=== PATIENT | female | born 1970 | race Caucasian/White ===

== ENCOUNTER → 2016-11-08 | Outpatient (CLI) | payer MEDICAID ==
--- NOTE | 2016-11-09 08:29 | Diagnostic Imaging Report ---
EXAMINATION: Bilateral screening mammogram with a Computer Aided Detection (CAD) system. INDICATION: Screening. PERSONAL HISTORY: No current complaints stated on the questionnaire. COMPARISON: 03/10/2014. FINDINGS: The breasts are composed of heterogeneously dense parenchyma which may decrease mammographic sensitivity. There are bilateral circumscribed masses seen in the upper outer aspect of each breast measuring about 1 cm in size on the right side and 2 cm on the left. These could represent cysts. The rest of the breast parenchyma appears comparable to the prior exams. Benign-appearing calcifications are seen. IMPRESSION: Circumscribed masses in the upper outer aspect of each breast are probably related to cysts. An ultrasound evaluation is recommended. ACR BI-RADS Category 0: Incomplete. (Needs additional imaging evaluation). Result letter will be mailed to the patient. Note: At least 10% of breast cancer is not imaged by mammography. Dictated by: Dictated on workstation # [id number]
== END ==
LOC: RAD 11:17
PROVIDERS: ATTEND Family Medicine
DX: Z12.31 Encounter for screening mammogram for malignant neoplasm of breast (principal); N63 Unspecified lump in breast
CPT/HCPCS: 77067

== ENCOUNTER → 2016-11-17 | Outpatient (CLI) | payer MEDICAID ==
--- NOTE | 2016-11-17 20:16 | Diagnostic Imaging Report ---
EXAMINATION: Bilateral breast ultrasound. INDICATION: Focal asymmetry seen in the upper outer aspect of each breast, bilaterally. FINDINGS: In the upper outer aspect of the left breast there are cysts, the largest is 2.5 x 1.5 x 2.4 cm at the 2:00 zone, 2 cm from the nipple. In the upper outer aspect of the right breast there are multiple cysts, the largest measuring 1.4 x 0.8 x 1.2 cm at the 9:00, zone. This is 5 cm from the nipple. These match the mammographic abnormalities. No sonographic suspicious sign or evidence of a solid mass. IMPRESSION: Bilateral simple appearing cysts in the upper outer quadrants of each breast which correlates with the mammographic findings. Annual screening mammograms recommended. ACR BI-RADS Category 2: Benign findings. Result letter will be mailed to the patient. Note: At least 10% of breast cancer is not imaged by mammography. Dictated by: Dictated on workstation # [id number]
== END ==
LOC: RAD 13:20
PROVIDERS: ATTEND Family Medicine
DX: N60.11 Diffuse cystic mastopathy of right breast (principal); N60.12 Diffuse cystic mastopathy of left breast
CPT/HCPCS: 76642

== ENCOUNTER 2016-12-02 10:24 | Emergency (ER) | payer MEDICAID ==
[~2016-12-02] VITALS: Ht 154.9 cm; Wt 89.4 kg
--- OUTSIDE RECORDS SUMMARY | 2016-12-02 10:29 | XMS REPORT | Continuity of Care Document ---
Author Author [facility] Address Unknown Phone Unavailable Allergies Medications Problems Date Dx Coded Attending Type Code Diagnosis Diagnosed By 12/17/2007 WHITE DDS, MILES J 729.5 PAIN IN LIMB 04/08/2008 WHITE DDS, MILES J 465.9 UPPER RESPIRATORY INFECTION 04/08/2008 WHITE DDS, MILES J V70.3 SPORTS/SCHOOL EXAM 11/13/2008 WHITE DDS, MILES J 345.90 EPILEPSY UNSPECIFIED WITHOUT INTRACTABLE EPILEPSY 01/28/2009 WHITE DDS, MILES J 300.4 DYSTHYMIC DIS 01/28/2009 WHITE DDS, MILES J 317 MILD MENTAL RETARDATION 11/04/2016 Ot 780.79 OTH MALAISE FATIGUE 11/04/2016 Ot 794.5 ABN THYROID FUNCT STUDY 11/04/2016 Ot 780.79 OTH MALAISE FATIGUE 11/04/2016 Ot 794.5 ABN THYROID FUNCT STUDY 11/04/2016 Ot V76.12 OTH SCREEN MAMMO-MALIGN NEOPLASM OF ALEKS 11/04/2016 Ot 780.39 OTHER CONVULSIONS 11/04/2016 YASIR MARTIN MD Ot 793.82 INCONCLUSIVE MAMMOGRAM 11/04/2016 YASIR MARTIN MD Ot V76.12 OTH SCREEN MAMMO-MALIGN NEOPLASM OF ALEKS 11/04/2016 YASIR MARTIN MD Ot V76.12 OTH SCREEN MAMMO-MALIGN NEOPLASM OF ALEKS 11/04/2016 YASIR MARTIN MD Ot 610.0 SOLITARY CYST OF BREAST 11/08/2016 Ot 780.79 OTH MALAISE FATIGUE 11/08/2016 Ot 794.5 ABN THYROID FUNCT STUDY 11/08/2016 Ot 780.79 OTH MALAISE FATIGUE 11/08/2016 Ot 794.5 ABN THYROID FUNCT STUDY 11/08/2016 Ot V76.12 OTH SCREEN MAMMO-MALIGN NEOPLASM OF ALEKS 11/08/2016 Ot 780.39 OTHER CONVULSIONS 11/08/2016 YASIR MARTIN MD Ot 793.82 INCONCLUSIVE MAMMOGRAM 11/08/2016 YASIR MARTIN MD Ot V76.12 OTH SCREEN MAMMO-MALIGN NEOPLASM OF ALEKS 11/08/2016 YASIR MARTIN MD Ot V76.12 OTH SCREEN MAMMO-MALIGN NEOPLASM OF AELKS 11/08/2016 YASIR MARTIN MD Ot 610.0 SOLITARY CYST OF BREAST 11/09/2016 YASIR MARTIN MD Ot N63 UNSPECIFIED LUMP IN BREAST 11/09/2016 YASIR MARTIN MD L Ot Z12.31 ENCNTR SCREEN MAMMOGRAM FOR MALIGNANT NE 11/09/2016 YASIR MARTIN MD Ot N63 UNSPECIFIED LUMP IN BREAST 11/09/2016 YASIR MARTIN MD Ot Z12.31 ENCNTR SCREEN MAMMOGRAM FOR MALIGNANT NE 11/18/2016 YASIR MARTIN MD Ot N63 UNSPECIFIED LUMP IN BREAST 11/18/2016 YASIR MARTIN MD Ot Z12.31 ENCNTR SCREEN MAMMOGRAM FOR MALIGNANT NE 11/29/2016 YASIR MARTIN MD L Ot 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 11/29/2016 YASIR MARTIN MD L Ot N60.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 Procedures Results Encounters ACCT No. Visit Date/Time Discharge Status Pt. Type Provider Facility Loc./Unit Complaint [id number] 01/14/2013 08:00:00 01/14/2013 23: 59:59 CLS Outpatient MILES GROSS DDS
[2016-12-02] MEDS ORDERED: NAPR500T3 (10:46)
[2016-12-02] MEDS ORDERED: CYCL5TAB (10:46)
[2016-12-02] MEDS ORDERED: PANT40TA3 (10:46)
[2016-12-02] MEDS ORDERED: TRAZ100T92 (10:46)
[2016-12-02] MEDS ORDERED: MIRA50TA (10:46)
[2016-12-02] MEDS ORDERED: PHEN-452 (10:46)
--- NOTE | 2016-12-02 10:56 | ED Respiratory ---
General Chief Complaint: Respiratory Problems Stated Complaint: SOB Nursing Triage Note: ARRIVED VIA AMB. PT IS A PT AT [facility] . WENT TO GET WEIGHED THIS AT [facility] AND THEY NOTICED PT IS GASPING FOR AIR AND SENT HER TO THE ER. STAFF WITH HER REPORTS SHE IS CONFUSED. Source: patient Exam Limitations: no limitations History of Present Illness Time seen by provider: 10:42 Initial Comments This 46-year-old white female presents with her caregiver from [facility] with a history of increasing shortness of breath over the past 2 weeks. No fever or chill. No productive cough. There is been no associated chest pain. There is been no similar history in the past. Patient's past medical history includes obesity for which she is taking a diet pill. This is in anticipation of repair of an abdominal wall hernia. Further history from the caregiver reveals the patient had a previous blood clot 5 years ago for which she was hospitalized for a number of days. Allergies and Home Medications Allergies Coded Allergies: aspirin (Verified Allergy, Unknown, 12/02/16) Home Medications Cyclobenzaprine HCl 5 Mg Tablet, #60 (Reported) Mirabegron 50 Mg Tab.er.24h, #30 (Reported) Naproxen 500 Mg Tablet, #60 (Reported) Pantoprazole Sodium 40 Mg Tablet.dr, #30 (Reported) Phentermine HCl 30 Mg Capsule, #30 (Reported) Trazodone HCl 100 Mg Tablet, #30 (Reported) Constitutional: No chills, No fever EENTM: No ear pain, No vision loss Respiratory: cough (a slight nonproductive cough has been noted by the patient' s caregivers), short of breath, No wheezing Gastrointestinal: No abdominal pain, No diarrhea, No nausea, No vomiting Genitourinary: No decreased output Musculoskeletal: No back pain Skin: No change in color, No rash Psychiatric/Neurological: No Symptoms Reported Hematologic/Lymphatic: No Symptoms Reported Immunological/Allergic: no symptoms reported Past Wydokll-Pmfdrj-Ixhkqr Hx Patient Social History Recent Foreign Travel: No Contact w/Someone Who Travel: No Recent Infectious Disease Expo: No Surgeries Surgeries: Gallbladder Gastrointestinal Gastrointestinal Disorders: Hiatal Hernia Reviewed Nursing Assessment Reviewed/Agree w Nursing PMH: Yes Physical Exam Vital Signs Vital Sign - Last 12Hours 12/02/16 10:27 Temp 99.3 Pulse 122 Resp 20 B/P (MAP) 142/102 Pulse Ox 99 O2 Delivery Room Air Capillary Refill : Less Than 3 Seconds General Appearance: WD/WN, no apparent distress HEENT: normal ENT inspection Neck: normal inspection Respiratory: chest non-tender, lungs clear, normal breath sounds, no respiratory distress, no accessory muscle use Cardiovascular: normal peripheral pulses, regular rate, rhythm, no edema Gastrointestinal: normal bowel sounds, non tender, soft Extremities: normal range of motion, normal inspection Neurologic/Psychiatric: no motor/sensory deficits, alert Skin: normal color, warm/dry Progress/Results/Core Measures Results/Orders Lab Results Laboratory Tests Test 12/02/16 10:37 Range/Units White Blood Count 6.7 4.3-11.0 10^3/uL Red Blood Count 4.21 L 4.35-5.85 10^6/uL Hemoglobin 11.3 L 11.5-16.0 G/DL Hematocrit 36 35-52 % Mean Corpuscular Volume 85 80-99 FL Mean Corpuscular Hemoglobin 27 25-34 PG Mean Corpuscular Hemoglobin Concent 32 32-36 G/DL Red Cell Distribution Width 15.4 H 10.0-14.5 % Platelet Count 407 H 130-400 10^3/uL Mean Platelet Volume 10.0 7.4-10.4 FL Neutrophils (%) (Auto) 66 42-75 % Lymphocytes (%) (Auto) 23 12-44 % Monocytes (%) (Auto) 9 0-12 % Eosinophils (%) (Auto) 2 0-10 % Basophils (%) (Auto) 1 0-10 % Neutrophils # (Auto) 4.4 1.8-7.8 X 10^3 Lymphocytes # (Auto) 1.6 1.0-4.0 X 10^3 Monocytes # (Auto) 0.6 0.0-1.0 X 10^3 Eosinophils # (Auto) 0.1 0.0-0.3 10^3/uL Basophils # (Auto) 0.0 0.0-0.1 10^3/uL Prothrombin Time 12.7 12.2-14.7 SEC INR Comment 1.0 0.8-1.4 Activated Partial Thromboplast Time 28 24-35 SEC D-Dimer 0.32 0.00-0.49 UG/ML Sodium Level 140 135-145 MMOL/L Potassium Level 3.9 3.6-5.0 MMOL/L Chloride Level 106 98-107 MMOL/L Carbon Dioxide Level 22 21-32 MMOL/L Anion Gap 12 5-14 MMOL/L Blood Urea Nitrogen 10 7-18 MG/DL Creatinine 1.18 0.60-1.30 MG/DL Estimat Glomerular Filtration Rate 49 BUN/Creatinine Ratio 8 Glucose Level 118 H 70-105 MG/DL Calcium Level 10.4 H 8.5-10.1 MG/DL Magnesium Level 1.8 1.8-2.4 MG/DL Total Bilirubin 0.4 0.1-1.0 MG/DL Aspartate Amino Transf (AST/SGOT) 14 5-34 U/L Alanine Aminotransferase (ALT/SGPT) 15 0-55 U/L Alkaline Phosphatase 138 H 40-136 U/L Myoglobin 69.8 10.0-92.0 NG/ML Troponin I < 0.30 <0.30 NG/ML B-Type Natriuretic Peptide 51.5 <100.0 PG/ML Total Protein 7.8 6.4-8.2 GM/DL Albumin 4.0 3.2-4.5 GM/DL My Orders Orders - SATISH, MARY Momin MD Cbc With Automated Diff (12/02/16 10:58) Magnesium (12/02/16 10:58) Chest 1 View, Ap/Pa Only (12/02/16 10:58) Ekg Tracing (12/02/16 10:58) Cardiac Profile 1 (12/02/16 10:58) Comprehensive Metabolic Panel (12/02/16 10:58) Myoglobin Serum (12/02/16 10:58) Protime With Inr (12/02/16 10:58) Partial Thromboplastin Time (12/02/16 10:58) O2 (12/02/16 10:58) Monitor-Rhythm Ecg Trace Only (12/02/16 10:58) Lipid Panel (12/03/16 06:00) Saline Lock/Iv-Start (12/02/16 10:58) BNP (12/02/16 10:58) Fibrin Degradation Products (12/02/16 10:58) Ct Angio Chest W (12/02/16 12:18) Ns Iv 1000 Ml (Sodium Chloride 0.9%) (12/02/16 13:15) Iohexol Injection (Omnipaque 350 Mg/Ml 1 (12/02/16 14:00) Ns (Ivpb) (Sodium Chloride 0.9% Ivpb Bag (12/02/16 14:00) Medications Given in ED Current Medications Medications Dose Ordered Sig/Jeff Route Start Time Stop Time Status Last Admin Dose Admin Iohexol 100 ml ONCE ONCE IV 12/02/16 14:00 12/02/16 14:01 DC 12/02/16 13:52 100 ML Sodium Chloride 100 ml ONCE ONCE IV 12/02/16 14:00 12/02/16 14:01 DC 12/02/16 13:52 80 ML Vital Signs/I&O Vital Sign - Last 12Hours 12/02/16 12/02/16 10:27 12:25 Temp 99.3 98.6 Pulse 122 Resp 20 B/P (MAP) 142/102 Pulse Ox 99 100 O2 Delivery Room Air Room Air Blood Pressure Mean: 115 Progress Note : Time: 14:28 Progress Note The patient's EKG demonstrated a normal sinus rhythm without evidence of acute cranial injury. Patient's troponin was normal. The patient's d-dimer was negative. The patient's BMP was normal. Patient's pulse oximeter on room air was 98-99 percent. In view of the patient's previous documented blood clots a CT of the chest for PE was ordered. The patient's CT for PE was negative. At the time of discharge nursing Parment the patient's shortness of breath and spontaneously abated. Departure Impression Impression: Primary Impression: Shortness of breath Disposition: HOME, SELF-CARE Condition: Improved Departure-Patient Inst. Decision time for Depature: 14:30 Referrals: YASIR MARTIN MD (PCP/Family) Primary Care Physician Patient Instructions: Shortness of Breath (Dyspnea) (DC) Add. Discharge Instructions: Close follow-up with your doctor on Monday. Return in the interim if any problems. All discharge instructions reviewed with patient and/or family. Voiced understanding. MARY COVARRUBIAS MD Dec 02, 2016 10:56
[2016-12-02 11:05] LABS: BASOPHILS % (AUTO) 1 % (0-10); EOSINOPHILS # (AUTO) 0.1 10^3/uL (0.0-0.3); EOSINOPHILS % (AUTO) 2 % (0-10); LYMPHOCYTES # (AUTO) 1.6 X 10^3 (1.0-4.0); LYMPHOCYTES % (AUTO) 23 % (12-44); MEAN CORPUSCULAR HEMOGLOBIN 27 PG (25-34); MEAN CORPUSCULAR HGB CONC 32 G/DL (32-36); MEAN CORPUSCULAR VOLUME 85 FL (80-99); MONOCYTES # (AUTO) 0.6 X 10^3 (0.0-1.0); MONOCYTES % (AUTO) 9 % (0-12); NEUTROPHILS # (AUTO) 4.4 X 10^3 (1.8-7.8); NEUTROPHILS % (AUTO) 66 % (42-75); PLATELET COUNT 407 10^3/uL (130-400); RED BLOOD COUNT 4.21 10^6/uL (4.35-5.85); RED CELL DISTRIBUTION WIDTH 15.4 % (10.0-14.5); WHITE BLOOD COUNT 6.7 10^3/uL (4.3-11.0)
[2016-12-02 11:09] LABS: PROTHROMBIN TIME PATIENT 12.7 SEC (12.2-14.7)
[2016-12-02 11:23] LABS: ALANINE AMINOTRANSFERASE 15 U/L (0-55); ANION GAP 12 MMOL/L (5-14); ASPARTATE AMINO TRANSFERASE 14 U/L (5-34); BILIRUBIN,TOTAL 0.4 MG/DL (0.1-1.0); BLOOD UREA NITROGEN 10 MG/DL (7-18); BUN/CREATININE RATIO 8; CALCIUM 10.4 MG/DL (8.5-10.1); CARBON DIOXIDE 22 MMOL/L (21-32); CHLORIDE 106 MMOL/L (98-107); CREATININE SERUM 1.18 MG/DL (0.60-1.30); GFR ESTIMATED 49; GLUCOSE 118 MG/DL (70-105); MAGNESIUM 1.8 MG/DL (1.8-2.4); POTASSIUM 3.9 MMOL/L (3.6-5.0); SODIUM 140 MMOL/L (135-145); TOTAL PROTEIN 7.8 GM/DL (6.4-8.2)
[2016-12-02 11:29] LABS: MYOGLOBIN SERUM 69.8 NG/ML (10.0-92.0)
--- NOTE | 2016-12-02 12:21 | Diagnostic Imaging Report ---
EXAMINATION: Portable upright radiograph of the chest. INDICATION: Shortness of breath. FINDINGS: The lungs are clear. The heart size is normal. No effusion or pneumothorax. The mediastinum and inderjit appear unremarkable. IMPRESSION: Unremarkable exam. Dictated by: Dictated on workstation # [id number]
[2016-12-02] MEDS ORDERED: NS IV 1000 ML 1,000 ML IV SCH (13:15)
[2016-12-02] MEDS ORDERED: IOHEXOL 350 MG/ML 100 ML (OMNIPAQUE 350) VIAL IV ONE (14:00)
[2016-12-02] MEDS ORDERED: NS 100 ML (IVPB) BAG IV ONE (14:00)
--- NOTE | 2016-12-02 14:20 | Diagnostic Imaging Report ---
PROCEDURE: CT angiography of the chest with contrast. TECHNIQUE: Multiple contiguous axial images were obtained through the chest after uneventful bolus administration of intravenous contrast. Reconstructed CTA MIP acquisitions were also performed. INDICATION: Shortness of breath. COMPARISON: Chest radiographs 12/02/2016. FINDINGS: Examination is limited by motion artifact and contrast timing. No pulmonary artery filling defects. No thoracic aortic aneurysm or dissection. The lungs are clear. No pleural or pericardial effusion. No mediastinal, hilar or axillary lymphadenopathy. No pneumothorax. Large esophageal hiatal hernia. Cholecystectomy. Benign-appearing cysts and renal stones in the partially visualized kidneys. No acute osseous findings. IMPRESSION: No large or central pulmonary emboli. No thoracic aortic aneurysm or dissection. No acute CT findings in the chest. Dictated by: Dictated on workstation # [id number]
[2016-12-02 14:36] VITALS: BP 127/90
== END 2016-12-02 14:36 | disposition home or self-care (01) ==
LOC: EDUNIT# 10:24 → ER 10:25
DX: R06.02 Shortness of breath (principal); E66.9 Obesity, unspecified; Z68.37 Body mass index [BMI] 37.0-37.9, adult
CPT/HCPCS: 36415; 71010; 71275; 80053; 83735; 83874; 83880; 84484; 84703; 85025; 85379; 85610; 85730

== ENCOUNTER → 2018-02-20 | Outpatient (CLI) | payer MEDICAID ==
[~2018-02-20] MED LIST: CYCL5TAB; MIRA50TA; NAPR-915; PANT40TA3; PHEN30CA2; TRAZ-190
--- NOTE | 2018-02-20 13:11 | Diagnostic Imaging Report ---
INDICATION: Routine screening. COMPARISON: 11/08/2016 and 02/26/2014. TECHNIQUE: 2D and 3D bilateral screening mammography was performed with CAD. 3D tomosynthesis was also performed and reviewed. FINDINGS: Both breasts remain heterogeneously dense, limiting the sensitivity of mammography. There are benign calcifications throughout both breasts. A cyst in the outer left breast has significantly reduced in size since the prior mammogram. There is a density in the medial left breast at anterior depth, best seen on the CC view, which appears to be slightly more prominent on today's study. Additional views are recommended. The exact location on the MLO view is indeterminate. No other suspicious densities are seen. The axillae are unremarkable. IMPRESSION: There is a left breast density medially on the CC view. Additional views including spot compression and rolled CC views as well as a mediolateral view are recommended. ACR BI-RADS Category 0: Incomplete. (Needs additional imaging evaluation). Result letter will be mailed to the patient. Note: At least 10% of breast cancer is not imaged by mammography. Dictated by: Dictated on workstation # [id number]
== END ==
LOC: RAD 09:31
PROVIDERS: ATTEND Family Medicine
DX: Z12.31 Encounter for screening mammogram for malignant neoplasm of breast (principal); R92.8 Other abnormal and inconclusive findings on diagnostic imaging of breast
CPT/HCPCS: 77067

== ENCOUNTER → 2018-03-05 | Outpatient (CLI) | payer MEDICAID ==
--- NOTE | 2018-03-05 14:49 | Diagnostic Imaging Report ---
INDICATION: Left breast density. Patient presents for additional views. COMPARISON: Correlation is made with the recent screening study from 02/20/2018 and prior mammograms from 11/08/2016. TECHNIQUE: 2D and 3D unilateral left diagnostic mammography was performed including spot compression CC, rolled CC, and conventional 90 degree lateral views. FINDINGS: The left breast is heterogeneously dense, limiting the sensitivity of mammography. There is some persistent density in the medial left breast approximately 3-4 cm from the nipple on the CC views. No definite correlate on the ML view is seen. There are scattered calcifications noted. IMPRESSION: Persistent density in the medial left breast at anterior depth. Further evaluation with ultrasound is recommended. ACR BI-RADS Category 0: Incomplete. (Needs additional imaging evaluation). Result letter will be mailed to the patient. Note: At least 10% of breast cancer is not imaged by mammography. Dictated by: Dictated on workstation # [id number]
--- NOTE | 2018-03-05 14:51 | Diagnostic Imaging Report ---
INDICATION: Left breast density. This study is performed for further evaluation. COMPARISON: Correlation is made with the diagnostic mammogram from earlier this same day and a screening mammogram from 02/20/2018. FINDINGS: Sonographic interrogation of the medial left breast was performed. There is a simple appearing cyst at the 9 o'clock location of the left breast 3 cm from the nipple measuring 9 mm x 6 mm x 8 mm. This likely accounts for the density noted at this location on the mammogram. No solid breast mass is seen. No other abnormalities are seen apart from mildly prominent retroareolar ducts. IMPRESSION: Simple cyst at the 9 o'clock location of the left breast, likely accounting for the mammographic density. The patient may return to routine annual screening mammography. ACR BI-RADS Category 2: Benign findings. Dictated by: Dictated on workstation # [id number]
== END ==
LOC: RAD 13:17
PROVIDERS: ATTEND Family Medicine
DX: N60.02 Solitary cyst of left breast (principal); R92.2 Inconclusive mammogram
CPT/HCPCS: 76642

== ENCOUNTER 2018-07-10 20:48 | Outpatient (CLI) | payer MEDICAID, OTHER | END 2018-07-11 07:05 | disposition home or self-care (01) | LOC: SLEEP 20:48 | PROVIDERS: ATTEND Otolaryngology Otolaryngology/Facial Plastic Surgery | DX: G47.33 Obstructive sleep apnea (adult) (pediatric) (principal); R06.83 Snoring; G47.10 Hypersomnia, unspecified | CPT/HCPCS: 95810 ==

== ENCOUNTER 2018-08-27 19:44 | Outpatient (CLI) | payer MEDICAID | END 2018-08-28 07:37 | disposition home or self-care (01) | LOC: SLEEP 19:44 | PROVIDERS: ATTEND Otolaryngology Otolaryngology/Facial Plastic Surgery | DX: G47.33 Obstructive sleep apnea (adult) (pediatric) (principal) | CPT/HCPCS: 95811 ==

== ENCOUNTER → 2019-03-06 | Outpatient (CLI) | payer MEDICAID ==
--- NOTE | 2019-03-06 09:06 | Diagnostic Imaging Report ---
INDICATION: Routine screening. Comparison is made with prior mammogram 02/20/2018 and 11/08/2016. 2-D and 3-D bilateral screening mammography was performed with CAD. Both breasts are heterogeneously dense, limiting the sensitivity of mammography. Numerous calcifications are identified bilaterally. There are circumscribed masses in both breasts, most likely representing cysts. No new mass is seen. No malignant appearing microcalcifications are seen. Axillae are unremarkable. IMPRESSION: BI-RADS Category 2 No mammographic features suspicious for malignancy are identified. ACR BI-RADS Category 2: Benign findings. Result letter will be mailed to the patient. Note: At least 10% of breast cancer is not imaged by mammography. Dictated by: Dictated on workstation # [id number]
== END ==
LOC: RAD 08:02
PROVIDERS: ATTEND Family Medicine
DX: Z12.31 Encounter for screening mammogram for malignant neoplasm of breast (principal); C50.919 Malignant neoplasm of unspecified site of unspecified female breast
CPT/HCPCS: 77067

== ENCOUNTER 2019-10-18 08:08 | Outpatient (RCR) | payer MEDICAID ==
[~2019-10-18] VITALS: Ht 157.5 cm; Wt 91.8 kg
[~2019-10-18 08:08] MED LIST changes: +ASCO-281 PO; +CETI10TA17 PO; +CHOL200078 PO; -CYCL5TAB; +CYCL5TAB PO; +DIVA500T15 PO; +FERR142T7 PO; +FESO4TAB PO; +MELO15TA39 PO; +MULT-884 PO; +OLAN5TAB25 PO; -PANT40TA3; +PANT40TA3 PO; +PRAZ1CAP2 PO; -TRAZ-190; +TRAZ-227; +TRZ50T PO; +ZIPR20CA24 PO
== END 2019-10-18 14:31 | disposition home or self-care (01) ==
LOC: PREOP 08:08
PROVIDERS: ATTEND Orthopaedic Surgery
DX: Z01.812 Encounter for preprocedural laboratory examination (principal); Z11.59 Encounter for screening for other viral diseases; M75.101 Unspecified rotator cuff tear or rupture of right shoulder, not specified as traumatic
CPT/HCPCS: 87635

== ENCOUNTER 2019-10-23 08:28 | Day surgery (SDC) | payer MEDICAID ==
--- NOTE | 2019-10-12 17:25 | HISTORY AND PHYSICAL ---
DATE OF SERVICE: This will be for outpatient surgery on 10/23/2019 for right rotator cuff repair. HISTORY OF PRESENT ILLNESS: The patient is a 49-year-old female with 1 year history of right shoulder pain. This has progressed to the point where she has developed stiffness and loss of function in her arm. She underwent an MRI, which revealed a full-thickness supraspinatus tear. She denies any specific injuries, but reports progressive pain. She denies neck pain and denies paresthesias. Due to functional impairment and failure to improve with conservative measures, the patient elected to proceed with surgical intervention. REVIEW OF SYSTEMS: No chest pain, no shortness of breath, no dysuria. PAST MEDICAL HISTORY: Reflux, depression, seizures, asthma, sleep apnea, anemia, allergic rhinitis. PAST SURGICAL HISTORY: Tubal ligation, cholecystectomy. FAMILY HISTORY: Noncontributory. PRIMARY CARE PROVIDER: Dr. Holt. MEDICATIONS: Cyclobenzaprine, Pantoprazole, cetirizine, , meloxicam, trazodone, prazosin, olanzapine, ziprasidone, Toviaz, Depakote. ALLERGIES: PHENTERMINE. SOCIAL HISTORY: The patient denies alcohol, tobacco use. PHYSICAL EXAMINATION: GENERAL: The patient is well-developed, well-nourished, in no acute distress. HEENT: Normocephalic, atraumatic. Pupils are equal, round and reactive to light Oropharynx is clear. NECK: Supple, no lymphadenopathy. LUNGS: Clear to auscultation bilaterally. HEART: Regular rate and rhythm. ABDOMEN: Soft, nontender, nondistended. EXTREMITIES: Right shoulder demonstrates active forward elevation 120 degrees with passive forward elevation 150 degrees, external rotation actively 70 degrees, internal rotation to her lower lumbar spine. She has weakness with abduction and external rotation with positive Neer's and positive Hawkin sign. IMPRESSION: Right rotator cuff tear with adhesive capsulitis. PLAN: Right shoulder arthroscopy with open rotator cuff repair and manipulation under anesthesia. The risks, benefits, options, ramifications and recovery were discussed at length with the patient. She understands and wishes to proceed. Job ID: [id number] DocumentID: [id number] Dictated Date: 10/12/2019 16:01:59 [employer] Consultant Date: 10/12/2019 17:24:27 Dictated By: NGUYỄN CERVANTES MD
[2019-10-23] VITALS (12 sets, daily range): BP systolic 95–123; BP diastolic 54–88
[~2019-10-23] VITALS: Ht 154.9 cm; Wt 91.8 kg
[~2019-10-23 08:28] MED LIST changes: +oxyCODONE/APAP 5/325MG (PERCOCET 5) TABLET PO PRN
--- OUTSIDE RECORDS SUMMARY | 2019-10-23 08:36 | XMS REPORT ---
Author Author Mary Jane COLLIER Organization [facility] Address [address] [place] [address] Care Team Providers Care Facility Designer Name Role Phone PHONG COLLIER Unavailable PROBLEMS Unknown Problems ALLERGIES No Information ENCOUNTERS Encounter Location Date Diagnosis [facility] [address] [facility] [id number] [address] [place] [phone] Aug, [facility] [address] [facility] [id number] [address] [place] [phone] Jun, [facility] [address] [facility] [id number] [place] [id number] Apr, Encounter for dental examina tion and cleaning without abnormal findings Z01.20 [facility] [address] [facility] [id number] [address] [place] [phone] Apr, Dental examination Z01.20 [facility] [address] [facility] [id number] [address] [place] [phone] Apr, Encounter for immunization Z 23 [facility] [address] [id number] [address] [place] [phone] Jan, Encounter for dental examina tion and cleaning without abnormal findings Z01.20 [facility] [address] [facility] [address] [id number] [place] [phone] Oct, Dental examination Z01.20 [facility] [address] [id number] [address] [place] [phone] Oct, Encounter for dental examina tion and cleaning without abnormal findings Z01.20 [facility] [address] [id number] [address] [place] [phone] Dec, Dental examination V72.2 [facility] [address] [place] [id number] [address] [place] [phone] Mar, [facility] [address] [facility] [id number] [address] [place] [phone] Mar, [facility] [address] [facility] [id number] [address] [place] [phone] Mar, [facility] [address] [facility] [id number] [address] [place] [phone] Feb, IMMUNIZATIONS No Known Immunizations SOCIAL HISTORY Never Assessed REASON FOR VISIT PLAN OF CARE Activity Details Follow Up prn Reason:Recall VITAL SIGNS MEDICATIONS Unknown Medications RESULTS No Results PROCEDURES Procedure Date Ordered Result Body Site COMP ORAL EVALUATION - NEW/EST PT November 09, 2016 INTRAORL-PERIAPICAL 1 FILM 43411 November 09, 2016 RESIN COMPOS - 1 SURFACE POSTERIOR November 09, 2016 RESIN COMPOS - 1 SURFACE POSTERIOR November 09, 2016 INTRAORL-PERIAPICAL EA ADD FILM November 09, 2016 INTRAORL-PERIAPICAL EA ADD FILM November 09, 2016 BITEWINGS - FOUR FILMS November 09, 2016 INTRAORL-PERIAPICAL EA ADD FILM November 09, 2016 INSTRUCTIONS MEDICATIONS ADMINISTERED No Known Medications MEDICAL (GENERAL) HISTORY Type Description Date Medical History ASTHMA
--- OUTSIDE RECORDS SUMMARY | 2019-10-23 08:36 | XMS REPORT ---
Author Author [facility] [employer] driller portable [employer] [facility] Address [address] [address] Care Team Providers Care Tallow Maker Name Role Phone MARIELA PRADO Unavailable Unavailable LYMAN GUERDA Unavailable MARIELA PRADO Unavailable Unavailable SHORT, JACKSIE Unavailable YUVAL LunaSIE Unavailable YASIR MARTIN Unavailable Unavailable YASIR MARTIN Unavailable Unavailable YASIR MARTIN Unavailable Unavailable STEFANIA LIU Unavailable JACOB LIUN Unavailable LYMAN GUERDA Unavailable YASIR MARTIN PCP YASIR MARTIN MD Unavailable Unavailable MARY COVARRUBIAS MD Unavailable Unavailable MANNY MONACO Unavailable Unavailable MANNY MONACO Unavailable Unavailable MANNY MONACO Unavailable Unavailable NATALI LOPEZ MD Unavailable Unavailable ELVA Jack Unavailable Unavailable MARY COVARRUBIAS MD Unavailable Unavailable NGUYỄN LEUNG MD Unavailable Unavailable YASIR MARTIN MD Unavailable Unavailable NATALI LOPEZ MD Unavailable Unavailable NATALI LOPEZ MD Unavailable Unavailable NATALI LOPEZ MD Unavailable Unavailable PCP, TRANSITION Unavailable Unavailable Lm LOPEZ Unavailable Unavailable YASIR MARTIN Unavailable Unavailable Lm LOPEZ Unavailable Unavailable RUDDY CHIN Unavailable NGUYỄN CERVANTES MD Unavailable Unavailable Unavailable Unavailable Unavailable Unavailable Unavailable Unavailable Unavailable Unavailable Unavailable Unavailable Unavailable Unavailable Unavailable Unavailable Unavailable Unavailable Allergies Normalized Allergy Reported Date of Reaction(s) Care Provider Facility Allergy Type classification allergen Allergy Onset Drug Allergy Aspirin aspirin 12-02-2016 - Aspirin YASIR LACKEY Not Available (25 sources.) Translations: MD (38030) Translations: [ Aspirin] [ Allergy to Substance] no information Unclassified NO KNOWN DRUG NO KNOWN DRUG CHANDRO UTIE Not Available (25 sources.) ALLERGIES ALLERGIES, [facility] (38396) UNKNOWN Drug Allergy Phentermine phentermine 01-30-2018 - Unknown [facility] (20 sources.) Translations: [facility] of [ Phentermine [place] Hydrochloride [facility] (04940) 37.5 MG Oral Capsule, Phentermine HCl] Medications Current Medications Medication Ingredient Drug Dose Dates Status Sig Sig Care Class(es) (Normalized) (Original) Provid er cholecalcif cholecalcif Vitamin D 1000 Active no Vitamin D no matt 1000 matt [IU] information 1000 UNIT name unt oral Translation Orally Once tablet (1 s: [ a day 1 source.) Vitamin D tablet 24h 1000 UNIT] Active no Vitamin C no 500 mg Active no Vitamin C no information 500 MG information information 500 MG name (1 source.) Translation Active s: [ Vitamin C 500 MG] Completed/Discontinued Medications Medication Ingredient Drug Dose Dates Status Sig Sig Care Class(es) (Normalized) (Original) Provid er no Lactated no 08-05-19 no no no no information Ringer's information 17 - informat information inf ormation name (1 source.) Solution 08-12-19 ion 17 Problems Active Problems Problem Normalized Date Last Normalized Normalized Provider Fa cility Classification Problem(s) Recorded Problem Problem Sta tus Duration Other Abnormal feces Episodic Active YASIR MARTIN No t Available gastrointestin (42764) al disorders (6 sources.) Acute and Acute kidney Episodic Active YASIR MARTIN Not Available unspecified failure, (45600) renal failure unspecified (6 sources.) Translations: [ ACUTE KIDNEY FAILURE, UNSPECIFIED] Other upper Allergic Chronic Active YASIR MARTNI Hospit al respiratory rhinitis, [facility] of disease (2 unspecified [place] sources.) [facility] (62811) Deficiency and Anemia, Episodic Active CHANDROUTIE Not Av ailable other anemia unspecified [facility] (52272) (7 sources.) Deficiency and Anemia, Episodic Active CHANDROUTIE Not Av ailable other anemia unspecified [facility] (19839) (7 sources.) Other Body mass Chronic Active MARY SATISH , Not Sienna ilable nutritional; index (BMI) MD (95940) endocrine; and 37.0-37.9, metabolic adult disorders (8 sources.) Abdominal Diaphragmatic Episodic Active CHANDROUTIE Not Av ailable hernia (9 hernia without JACINDA (04073) sources.) obstruction or gangrene Translations: [ DIAPHRAGMATIC HERNIA WITH OBSTRUCTION, DIAPHRAGMATIC HERNIA WITH OBSTRUCTION] 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 [facility] Via breast mastopathy of , MD Garcia conditions (16 right breast Hospital - sources.) Translations: [place] [ DIFFUSE (48463) CYSTIC MASTOPATHY OF LEFT BREAST, DIFFUSE CYSTIC MASTOPATHY OF LEFT BREAST] Diverticulosis Diverticulosis Chronic Active CHANDROUTIE Not Available and of large JACINDA (74509) diverticulitis intestine (14 sources.) without perforation or abscess without bleeding Translations: [ DIVERTICULOSIS OF COLON WITH HEMORRHAGE] Other Dysphagia, Episodic Active no name Hospital gastrointestin unspecified [facility] of al disorders Translations: [place] (2 sources.) [ DYSPHAGIA, [facility] (99792) UNSPECIFIED] Diseases of Elevated white Chronic Active YASIR MARTIN Not Available white blood blood cell (12270) cells (6 count, sources.) unspecified Translations: [ LEUKOCYTOSIS, UNSPECIFIED] Other Encounter for Episodic Active YASIR MARTIN Hos pital screening for screening [facility] of suspected mammogram for [place] conditions malignant [place] ([address]) (not mental neoplasm of disorders or breast infectious Translations: disease) (22 [ OTH ABN AND sources.) INCONCLUSIVE FINDINGS ON DX , ENCOUNTER FOR SCREENING FOR MALIGNANT NEOPLASM OF VAGINA, SCREENING FOR MALIGNANT NEOPLASMS OF THE VAGINA, INCONCLUSIVE MAMMOGRAM, OTH SCREEN MAMMO-MALIGN NEOPLASM OF ALEKS, INCONCLUSIVE MAMMOGRAM, ABN THYROID FUNCT STUDY, OTH ABN AND INCONCLUSIVE FINDINGS ON DX , No current problems or disabilities] Esophageal Gastro-esophag Chronic Active CHANDROUTIE Not Available disorders (13 eal reflux [facility] (47251) sources.) disease without esophagitis Translations: [ ESOPHAGEAL REFLUX, ESOPHAGEAL REFLUX, GASTRO-ESOPHAG EAL REFLUX DISEASE WITH ESOPHAGITIS, REFLUX ESOPHAGITIS] Residual Hypersomnia, Chronic Active NGUYỄN LEUNG [facility] V ia codes; unspecified , MD Garcia unclassified Hospital - (1 source.) [place] (32982) Fluid and Hypopotassemia Episodic Active YASIR MARTIN No t Available electrolyte Translations: (22915) disorders (6 [ DEHYDRATION, sources.) DEHYDRATION, HYPOKALEMIA] Other lower Hypoxemia Episodic Active YASIR MARTIN Not A vailable respiratory (39835) disease (4 sources.) Other lower Hypoxemia Episodic Active YASIR MARTIN Not A vailable respiratory (15318) disease (4 sources.) Intestinal Ileus, Episodic Active YASIR MARTIN Not Sienna ilable obstruction unspecified (02694) without hernia Translations: (2 sources.) [ PARALYTIC ILEUS] Deficiency and Iron Chronic Active YASIR MARTIN Not Available 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) (6 sources.) 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 YASIRROSENDO MARTIN Not Available other anemia deficiency (95034) (6 sources.) anemia secondary to blood loss (chronic) Cancer of Malignant Chronic Active YASIR MARTIN [facility] Via breast (1 neoplasm of , MD Garcia source.) unspecified Hospital - site of [place] unspecified (15580) female breast Other Obesity, Chronic Active MARY COVARRUBIAS , Not Avai lable nutritional; unspecified MD (44213) endocrine; and metabolic disorders (10 sources.) Other Obesity, Chronic Active YASIR MARTIN [facility] nutritional; unspecified [facility] of endocrine; and [place] metabolic [facility] (20692) disorders (2 sources.) Residual Obstructive Chronic Active NGUYỄN LEUNG Not Av ailable codes; sleep apnea , (57640) unclassified (adult) (5 sources.) (pediatric) Miscellaneous Other Chronic Active YASIR MARTIN Hosp ital mental health dysfunctions [facility] of disorders (1 of sleep [place] source.) stages or County (37841) arousal from sleep Other Other fecal Episodic Active YASIR MARTIN Not A vailable gastrointestin abnormalities (05909) al disorders (6 sources.) Complications Other Episodic Active YASIR MARTIN Not Available of surgical postprocedural (00368) procedures or complications medical care and disorders (6 sources.) of digestive system Translations: [ OTHER POSTOPERATIVE FUNCTIONAL DISORDERS] Pleurisy; Pleural Episodic Active YASIRROSENDO MARTIN Not Avai lable pneumothorax; effusion, not (43691) pulmonary elsewhere collapse (6 classified sources.) Translations: [ PLEURISY WITH EFFUSION, WITH MENTION OF A BACTERIAL CAUSE OTHER THAN TUBERCULOSIS] Anxiety Post-traumatic Chronic Active YASIR MARTIN Ho spital disorders (1 stress [facility] of source.) disorder, [place] chronic [facility] (87331) Complications Postprocedural Episodic Active YASIR MARTIN Hospital of surgical intestinal [facility] of procedures or obstruction [place] medical care Translations: County (42642) (2 sources.) [ OTHER DIGESTIVE SYSTEM COMPLICATIONS] Other lower Shortness of Episodic Active MARY COVARRUBIAS , No t Available respiratory breath (19996) disease (16 sources.) Other lower Snoring Episodic Active NGUYỄN LEUNG Not Sienna ilable respiratory , (57817) disease (3 sources.) Nonmalignant Solitary cyst Episodic Active YASIR MARTIN Not Available breast of left breast , () conditions (24 Translations: sources.) [ SOLITARY CYST OF BREAST, UNSPECIFIED LUMP IN BREAST] Osteoarthritis Unilateral Chronic Active YASIR MARTIN H ospital (2 sources.) primary [facility] of osteoarthritis [facility] knee [facility] (87728) Translations: [ OSTEOARTHROSIS , LOCALIZED, PRIMARY, INVOLVING LOWER LEG] Other Unspecified 10-21-2019 - Episodic Active NGUYỄN GARCIA [facility] Via connective rotator cuff , MD Garcia tissue disease tear or Hospital - (1 source.) rupture of [place] right (69296) shoulder, not specified as traumatic Blindness and Visual Episodic Active YASIR MARTIN Hosp ital vision defects hallucinations [facility] of (4 sources.) Translations: [place] [ [facility] (12334) PSYCHOPHYSICAL VISUAL DISTURBANCES] Past or Other Problems Problem Normalized Date Last Normalized Normalized Provider Fa cility Classification Problem(s) Recorded Problem Problem Sta tus Duration Unclassified Allergic no information no information [facility] (2 sources.) rhinitis [facility] (26827) Residual Hypersomnia, no information no information NGUYỄN DÍAZ Not Available codes; unspecified , () unclassified (2 sources.) Gastrointestin Melena Episodic Completed CHANDROUTIE Not Av ailable al hemorrhage Translations: JACINDA () (6 sources.) [ BLOOD IN STOOL] Epilepsy; Other Episodic Completed NATALI LOPEZ Not Avail able convulsions (2 convulsions MD (44170) sources.) Gastritis and Other Episodic Completed CHANDROUTIE Not Sienna ilable duodenitis (10 gastritis JACINDA (78294) sources.) without bleeding Translations: [ UNSPECIFIED GASTRITIS AND GASTRODUODENIT IS, WITHOUT MENTION OF HEMORRHAGE] Malaise and Other malaise Episodic Completed YASIR MARTIN N ot Available fatigue (4 and fatigue MD () sources.) Hemorrhoids Residual Episodic Completed CHANDROUTIE Not Avail able (12 sources.) hemorrhoidal JACINDA (46401) skin tags Translations: [ RESIDUAL HEMORRHOIDAL SKIN TAGS] Procedures Procedure Normalized Procedure Procedure Result Performer Facility Date 01-30-2018 Bitewings four images no information no name [facility] (30737) 02-02-2018 Dental no charge no information no name [facility] (45637) 01-30-2018 Dental prophylaxis no information no name [facility] (77641) Immunizations Normalized Immunization Date Notes Care Provider Facili ty Immunization influenza, 04-21-2018 no information GUERDA LYMAN [address] [facility] quadrivalent[place], [place] ([address]) preservative free influenza, seasonal, 03-23-2019 no information no name [facility] (39689) influenza, seasonal, 04-21-2018 - no information no name [facility] 04-21-2018 [facility] Translations: [ - [facility] FLULAVAL QUAD 0.5ML (49072) (6 MO ] influenza, seasonal, 04-21-2018 no information GUERDA LYMAN [address] [facility] (33323) vaccine no information YASIR MARTIN [address] [place] Via Translations: [ [facility] vaccine] (62929) Results Test Name Value Interpretation Reference Range Date Time Fa cility (Normalized) (Normalized) (Medline Reference) not yet categorized on null Exp date +~418m11~10/2019 (no code) [facility] (85038) laboratory on 2019-10-18 Coronavirus Ab Negative (no code) 10-18-2019 PENDING LOC ATION Qn (S) 08:55-0400 [facility] (85039) laboratory on 2019-10-08 HPV Negative (no code) 10-08-2019 [facility] (54452 ) 16+18+31+33+35+3 18:41-0400 9+45+51+52+56+58 +59+66+68 DNA Probe+sig amp Ql (Cvx) not yet categorized on 2019-10-04 Diagnosis ICD Comment (no code) 10-04-2019 [facility] (000 00) code 19:29-0400 [Identifier] QC reviewed by: Comment (no code) 10-04-2019 [facility] (0 0000) 19:29-0400 laboratory on 2019-10-04 Manager Operating Cyto Comment (no code) 10-04-2019 [facility] (0 0000) stain Nom 19:29-0400 (Cvx/Vag) [ID] Cytology report Comment (no code) 10-04-2019 [facility] (0 0000) Cyto stain Doc 19:290400 (Cvx/Vag) Cytology report Comment (no code) 10-04-2019 [facility] (0 0000) Cyto stain.thin 19:29-0400 prep Doc (Cvx/Vag) Microscopic . (no code) 10-04-2019 [facility] (58388 ) observation 19:29-0400 Other stain Nom (Unsp spec) Statement of Comment (no code) 10-04-2019 [facility] (0000 0) adequacy Cyto 19:29-0400 stain (Cvx/Vag) [Interp] not yet categorized on 2019-09-30 . . (no code) 09-30-2019 Hospital 06: [facility] (89179) CLINICIAN Z12.72 (no code) 09-30-2019 Hospital PROVIDED ICD10: 06: [facility] (53024) Pathology report NEGATIVE FOR (no code) 09-30-2019 [facility] final diagnosis INTRAEPITHELIAL 06: [facility] of Narrative LESION OR [facility] MALIGNANCY.\.br\ (13922) THIS SPECIMEN WAS RESCREENED PART OF OUR FINAL TESTER PROGRAM. PERFORMED BY: SILVIA HATFIELD, (no code) 09-30-2019 [facility] LEATHER STRETCHER 06:00 [facility] of (ASCP) [facility] (47252) QC REVIEWED BY: BRENDA HESTER, (no code) 09-30-2019 [facility] LEATHER STRETCHER 06:00 [facility] of (ASCP) [facility] (64395) TEST THIS LIQUID (no code) 09-30-2019 [facility] METHODOLOGY: BASED 06:00 [facility] of SUREPATH(R) PAP [facility] TEST WAS (87248) SCREENED WITH THE\.br\ASSISTAN CE OF AN IMAGE GUIDED SYSTEM. laboratory on 2019-09-30 HPV Negative (no code) 09-30-2019 Hospital 16+18+31+33+35+3 06:00-0400 [facility] #1 of 9+45+51+52+56+58 [facility] +59+66+68 DNA (05875) Probe+sig amp Ql (Cvx) other on 2016-08-04 Beta HCG Negative (no code) 08-04-2016 Not Available ( test) 09:53-0400 (67096) Ql imm/path on 2016-08-04 Surgical Sent to Walker (no code) 08-04-2016 Not Availa ble pathology study Pathology 12:38-0400 (44388) other on 2016-07-26 Electrocardiogra Complete (no code) 07-26-2016 Not Avail able ms recorded 15:27-0500 (48444) Erythrocyte 14.0 % (no code) 11.6 - 14.6 % 07-26-2016 Not Av ailable distribution 15:27-0500 (51639) width (RBC) [Ratio] GFR/1.73 sq 54 (L) 90 - 120 07-26-2016 Not Availa ble M.predicted MDRD mL/min/{1.73_m2} mL/min/{1.73_m2} 15:27-0500 (04915) (S/P/Bld) [Vol rate/Area] HCO3 (P) 24 (no code) 07-26-2016 Not Available [Moles/Vol] 15:27-0500 (07601) INR Coag 1.1 (no code) 07-26-2016 Not Available (Platelet poor 15:27-0500 (72233) plasma or blood) [Relative time] MCHC (RBC) 30.6 g/dL (L) 32 - 36 g/dL 07-26-2016 Not Avai lable [Mass/Vol] 15:27-0500 (78715) Osmolality Calc 295 (no code) 07-26-2016 Not Availa ble [Osmolality] 15:27-0500 (19425) Platelet mean 8.9 fL (no code) 7.2 - 11.7 fL 07-26-2016 Not Available volume (Bld) 15:27-0500 (69372) [Entitic vol] metabolic panel on 2016-07-26 Anion gap 17 mmol/L (H) 3 - 11 mmol/L 07-26-2016 Not Avai lable [Moles/Vol] 15: (21681) Calcium 10.0 mg/dL (no code) 8.5 - 10.2 mg/dL 07-26-2016 Not Available [Mass/Vol] 15: (42575) Chloride 106 mmol/L (no code) 95 - 106 mmol/L 07-26-2016 Not A vailable [Moles/Vol] 15: (02998) Creatinine 1.09 mg/dL (no code) 07-26-2016 Not Available [Mass/Vol] 15: (24016) Glucose 109 mg/dL (no code) 60 - 125 mg/dL 07-26-2016 Not Sienna ilable [Mass/Vol] 15: (27728) Potassium 4.1 mmol/L (no code) 3.7 - 5.2 mmol/L 07-26-2016 Not Available [Moles/Vol] 15: (65432) Sodium 143 mmol/L (no code) 135 - 145 mmol/L 07-26-2016 Not Available [Moles/Vol] 15: (93703) Urea nitrogen 11 mg/dL (no code) 7 - 20 mg/dL 07-26-2016 Not A vailable [Mass/Vol] 15: (38285) hematology on 2016-07-26 Basophils (Bld) 0.0 10*3/uL (no code) 0 - 0.3 10*3/uL 07-26-2016 Not Available [#/Vol] 15: (77975) Basophils/100 0.60 % (no code) 0.5 - 1 % 07-26-2016 Not Avai lable WBC (Bld) 15: (58601) Eosinophils 0.2 10*3/uL (no code) 0.05 - 0.5 07-26-2016 Not Sienna ilable (Bld) [#/Vol] 10*3/uL 15: (53499) Eosinophils/100 4.0 % (no code) 1 - 4 % 07-26-2016 Not Av ailable WBC (Bld) 15: (18502) Hematocrit (Bld) 36.6 % (no code) 36.1 - 50.3 % 07-26-2016 N ot Available [Volume 15:27-0500 (43572) fraction] Hemoglobin (Bld) 11.2 g/dL (L) 12.1 - 17.2 g/dL 07-26-2016 Not Available [Mass/Vol] 15:27-0500 (22988) Lymphocytes 1.14 10*3/uL (no code) 0.9 - 2.9 07-26-2016 Not Sienna ilable (Bld) [#/Vol] 10*3/uL 15:27-0500 (82245) Lymphocytes/100 21.7 % (no code) 20 - 40 % 07-26-2016 Not Av ailable WBC (Bld) 15:27-0500 (26179) MCH (RBC) 27.1 pg (no code) 27 - 31 pg 07-26-2016 Not Availab le [Entitic mass] 15:27-0500 (11156) MCV (RBC) 88.6 fL (no code) 80 - 100 fL 07-26-2016 Not Availa ble [Entitic vol] 15:27-0500 (74955) Monocytes (Bld) 0.4 10*3/uL (no code) 0.3 - 0.9 07-26-2016 Not Available [#/Vol] 10*3/uL 15:27-0500 (08912) Monocytes/100 7.6 % (no code) 2 - 8 % 07-26-2016 Not Avai lable WBC (Bld) 15:27-0500 (75732) Neutrophils 3.47 10*3/uL (no code) 1.7 - 7 10*3/uL 07-26-2016 N ot Available (Bld) [#/Vol] 15:27-0500 (36742) Neutrophils/100 66.1 % (no code) 40 - 60 % 07-26-2016 Not Av ailable WBC (Bld) 15:27-0500 (14747) Platelets (Bld) 409 10*3/uL (H) 150 - 450 07-26-2016 Not Available [#/Vol] 10*3/uL 15:27-0500 (71436) PT Coag (PPP) 12.8 (no code) 07-26-2016 Not Availabl e [Time] 15:0500 (14172) RBC (Bld) 4.13 10*6/uL (no code) 4.2 - 6.1 07-26-2016 Not Avail able [#/Vol] 10*6/uL 15:27-0500 (67605) WBC (Bld) 5.25 10*3/uL (no code) 3.5 - 10.5 07-26-2016 Not Avai lable [#/Vol] 10*3/uL 15:0500 (63174) Vital Signs The data below is from unstructured sources Blood pressure systolic 122 mmHg 2018-01-30 Blood pressure diastolic 78 mmHg 2018-01-30 Interventions No Information Plan of Treatment The data below is from unstructured sources Activity Details Follow Up 3 Months Reason:ON SITE RE CALL Activity Details Follow Up [employer]AIC STAFF TO CALL Reaso n:RESTORATIVE WITH DR FONTAINE Activity Details Follow Up prn Reason: Activity Details Follow Up 2 - 3 Days Reason:fine sca ling w/cavitron Discharge Date 07/11/18 7:05am Prescriptions See Medication Section Goals No Information Social History No Information Functional Status The data below is from unstructured sourcesNo functional status information available. Mental Status No Information Encounters Encounter Normalized Encounter Encounter Diagnosis Care Provi brian Organization Date Type 12-02-2016 Emergency department no information no name no organization name - patient visit 12-02-2016 09-01-2017 Evaluation and no information no name no organ ization name - management of 09-11-2017 inpatient 08-29-2017 Evaluation and no information no name no organ ization name - management of 08-30-2017 inpatient 03-05-2018 Patient encounter no information no name no or ganization name 02-20-2018 Patient encounter no information no name no or ganization name 02-19-2018 Patient encounter no information no name no or ganization name - 02-20-2018 02-16-2017 Patient encounter no information no name no or ganization name - 02-17-2017 10-18-2019 Patient encounter no information NGUYỄN Jauregui [facility] - procedure (no phone) [facility] 10-18-2019 (no phone) 10-16-2019 Patient encounter no information NGUYỄN Jauregui [facility] procedure (no phone) [facility] (no phone) 10-04-2019 Patient encounter no information YASIR MARTIN (no [facility] - procedure phone) [facility] [address] (no 10-05-2019 phone) 09-29-2019 Patient encounter no information YASIR MARTIN (no [facility] - procedure phone) of [address] (no 09-30-2019 phone) 09-10-2019 Patient encounter no information NATALI LOPEZ MD ( no [facility] - procedure phone) of [place] (no 09-10-2019 phone) 08-28-2019 Patient encounter no information YASIR MARTIN (no [facility] - procedure phone) of [place] [address] (no 08-28-2019 phone) 05-02-2019 Patient encounter no information no name no or ganization name - procedure 05-02-2019 03-23-2019 Patient encounter no information no name no or ganization name procedure 03-06-2019 Patient encounter no information no name no or ganization name procedure 02-23-2019 Patient encounter no information no name no or ganization name procedure 02-20-2019 Patient encounter no information no name no or ganization name - procedure 02-21-2019 02-07-2019 Patient encounter no information no name no or ganization name procedure 01-09-2019 Patient encounter no information no name no or ganization name - procedure 01-09-2019 01-08-2019 Patient encounter no information no name no or ganization name procedure 11-20-2018 Patient encounter no information no name no or ganization name - procedure 11-21-2018 09-11-2018 Patient encounter no information no name no or ganization name procedure 08-27-2018 Patient encounter no information no name no or ganization name - procedure 08-28-2018 08-27-2018 Patient encounter no information no name no or ganization name - procedure 08-28-2018 07-25-2018 Patient encounter no information no name no or ganization name - procedure 07-26-2018 07-10-2018 Patient encounter no information NGUYỄN calloway no organization name - procedure Phone: 07-11-2018 07-10-2018 Patient encounter no information no name no or ganization name - procedure 07-11-2018 07-10-2018 Patient encounter no information no name no or ganization name procedure 06-18-2018 Patient encounter no information no name no or ganization name procedure 06-14-2018 Patient encounter no information no name no or ganization name procedure 05-03-2018 Patient encounter no information no name no or ganization name procedure 04-21-2018 Patient encounter no information no name no or ganization name procedure 03-05-2018 Patient encounter no information no name no or ganization name procedure 02-20-2018 Patient encounter no information no name no or ganization name procedure 09-19-2017 Patient encounter no information no name no or ganization name - procedure 09-20-2017 02-15-2017 Patient encounter no information no name no or ganization name - procedure 02-16-2017 11-17-2016 Patient encounter no information no name no or ganization name procedure 11-17-2016 Patient encounter no information no name no or ganization name procedure 11-08-2016 Patient encounter no information no name no or ganization name procedure 11-08-2016 Patient encounter no information no name no or ganization name procedure 09-28-2016 Patient encounter no information no name no or ganization name - procedure 09-29-2016 08-04-2016 Patient encounter no information no name no or ganization name - procedure 08-04-2016 07-29-2016 Patient encounter no information no name no or ganization name - procedure 07-30-2016 07-26-2016 Patient encounter no information no name no or ganization name - procedure 07-27-2016 03-10-2014 Patient encounter no information no name no or ganization name procedure 03-10-2014 Patient encounter no information no name no or ganization name procedure 02-26-2014 Patient encounter no information no name no or ganization name procedure 02-26-2014 Patient encounter no information no name no or ganization name procedure 02-07-2013 Patient encounter no information no name no or ganization name procedure 06-25-2012 Patient encounter no information no name no or ganization name procedure 02-02-2012 Patient encounter no information no name no or ganization name procedure 12-14-2011 Patient encounter no information no name no or ganization name procedure 10-25-2011 Patient encounter no information no name no or ganization name procedure Patient encounter no information no name no organizat ion name procedure 01-30-2018 Periodic oral no information no name no organi zation name evaluation no information Encounter for dental no name no organi zation name examination and cleaning without abnormal findings no information Encounter for no name (no phone) preprocedural laboratory examination Medical Equipment No Information Payers Normalized Payer Value Medicaid no information Unknown [id number] ([id number]) Private Health Insurance no information Clinical Note 2019-10-04 Note Type Note Facility Note Comment (L) The Pap smear is a screening test designed to aid [facility] in the detection of~premalignant and ma lignant conditions of the uterine cervix. (47582) It is not a~diagnostic procedure and sh ould not be used as the sole means of detecting~cervical cancer. Both false-p ositive and false-negative reports do occur.~ Clinical Note 2019-09-30 Note Type Note Facility Note THE PAP SMEAR IS A SCREENING TEST DESIG HODAN TO AID IN THE DETECTION Hospital OF\.br\PREMALIGNANT AND MALIGNANT CONDITIONS OF THE U TERINE CERVIX. IT IS NOT District A\.br\DIAGNOSTIC PROCEDURE AND SHOULD NOT BE USED THE SOLE MEANS OF #1 of DETECTING\.br\CERVICAL CANCER. BOTH FAL SE-POSITIVE AND FALSE-NEGATIVE REPORTS DO Hernández OCCUR. THE PAP SMEAR IS A SCREENING TEST DESIGNED TO AID IN County THE DETECTION OF\.br\PREMALIGNANT AND MALIGNANT CONDI TIONS OF THE UTERINE (97717) CERVIX. IT IS NOT A\.br\DIAGNOSTIC PROC EDURE AND SHOULD NOT BE USED THE SOLE MEANS OF DETECTING\.br\CERVICAL CANCER. BOTH FALSE-POSITIVE AND FALSE-NEGATIVE REPORTS DO OCCUR. Clinical Note 2019-09-30 Note Type Note Facility Note SATISFACTORY FOR EVALUATION . ENDOCERVICAL AND/OR SQUAMOUS METAPLASTIC\.br\CELLS Hospital (ENDOCERVICAL COMPONENT) ARE PRESENT. SATISFACTORY FOR District EVALUATION. ENDOCERVICAL AND/OR SQUAMOUS METAPLASTIC\ .br\CELLS (ENDOCERVICAL #1 of COMPONENT) ARE PRESENT. [facility] ([id number]) Advance Directives No advance directive information available. Discharge Instructions No hospital discharge instruction information available. Additional Source Comments This clinical document has been generated using [employer] software that has been certified by the Office of the National Coordinator for Health Information Technology (ONC 15.99.04.3023.Diam.[id number]) and the National Committee for Reuse Technician (NCQA, as an eMeasure certified technology). FOR RECORDS PERTAINING TO PATIENTS WHO ARE OR HAVE BEEN ENROLLED IN A CHEMICAL D EPENDENCY/SUBSTANCE ABUSE PROGRAM, SOME INFORMATION MAY BE OMITTED. This clinica l summary was aggregated from multiple sources. Caution should be exercised in using it in the provision of clinical care. This summary normalizes information from multiple sources, and as a consequence, information in this document may ma terially change the coding, format and clinical context of patient data. In yvan tion, data may be omitted in some cases. CLINICAL DECISIONS SHOULD BE BASED ON T HE PRIMARY CLINICAL RECORDS. [employer] provides no warranty or guara ntee of the accuracy or completeness of information in this document.The followi information is based on time limited clinical information UNRECOGNIZED CONTENT PROVIDED BELOW FOR UNRECOGNIZED SECTION MEDICAL (GENERAL) HISTORY Type Description Date Medical History ASTHMA Type Description Date Medical History ASTHMA Medical History major depressive disorder Medical History anemia Medical History bipolar Medical History mild mr Medical History mood disorder Medical History epilepsy Medical History presbyopia Medical History schizophrenia Surgical History No know Surgical history UNRECOGNIZED CONTENT PROVIDED BELOW FOR UNRECOGNIZED SECTION REASON FOR VISIT fine scaling.recareflu shot JStrasserRN
--- OUTSIDE RECORDS SUMMARY | 2019-10-23 08:36 | XMS REPORT ---
Author Author Mary Jane LYMAN Organization [facility] Address [address] [place] [address] Care Team Providers Care Electrophysiologist Name Role Phone NURA GUERDA Unavailable PROBLEMS Unknown Problems ALLERGIES No Information ENCOUNTERS Encounter Location Date Diagnosis [facility] [address] [id number] [address] [place] [address] [phone] Jun, [facility] [address] [id number] [address] [place] [address] [phone] Apr, Encounter for dental examina tion and cleaning without abnormal findings Z01.20 [facility] [address] [id number] [address] [place] [address] [phone] Apr, Dental examination Z01.20 [facility] [address] [id number] [address] [place] [phone] Apr, Encounter for immunization Z 23 [facility] [address] [id number] [address] [place] [address] [phone] Jan, Encounter for dental examina tion and cleaning without abnormal findings Z01.[address] [id number] [phone] Oct, Dental examination Z01.20 [facility] [address] [id number] [address] [place] [address] [phone] Oct, Encounter for dental examina tion and cleaning without abnormal findings Z01.20 [facility] [address] [id number] [address] [place] [address] [phone] Dec, Dental examination V72.2 [facility] [address] [id number] [address] [place] [phone] Mar, [facility] [address] [id number] [address] [place] [phone] Mar, [facility] [address] [facility] [id number] [address] [place] [phone] Mar, [facility] [address] [facility] [id number] [address] [place] [phone] Feb, IMMUNIZATIONS Vaccine Route Administration Date Status FLUARIX QUAD (3 AND UP) 2016 IM Intramuscular May 01, 2017 Ad ministered SOCIAL HISTORY Never Assessed REASON FOR VISIT Flu shot JMane PLAN OF CARE VITAL SIGNS MEDICATIONS Unknown Medications RESULTS No Results PROCEDURES Procedure Date Ordered Result Body Site FLUARIX QUAD (3 AND UP) 2017 May 01, 2017 SINGLE IMMUNIZATION ADMIN May 01, 2017 INSTRUCTIONS MEDICATIONS ADMINISTERED No Known Medications MEDICAL (GENERAL) HISTORY Type Description Date Medical History ASTHMA
--- OUTSIDE RECORDS SUMMARY | 2019-10-23 08:36 | XMS REPORT ---
Author Author Mary Jane LYMAN Organization [facility] Address [address] [place] [address] Care Team Providers Care Surveyor Instrument Assistant Name Role Phone NURA GUERDA Unavailable PROBLEMS Unknown Problems ALLERGIES No Information ENCOUNTERS Encounter Location Date Diagnosis [facility] [address] [facility] [id number] [address] [place] [phone] Apr, Encounter for immunization Z 23 [facility] [address] [facility] [id number] [address] [place] [phone] 14 Jan, 2018 Dental examination Z01.20 [facility] [address] [id number] [address] [place] [address] [phone] Jan, Dental examination Z01.20 [facility] [address] [id number] [address] [place] [address] [phone] Jun, [facility] [address] [id number] [address] [place] [address] [phone] Apr, Encounter for dental examina tion and cleaning without abnormal findings Z01.20 [facility] [address] [id number] [address] [place] [address] [phone] Apr, Dental examination Z01.20 [facility] [address] [id number] [address] [place] [phone] Apr, Encounter for immunization Z 23 [facility] [address] [id number] [address] [place] [address] [phone] Jan, Encounter for dental examina tion and cleaning without abnormal findings Z01.20 [facility] [address] [id number] [phone] Oct, Dental examination Z01.20 [facility] [address] [id number] [address] [place] [address] [phone] Oct, Encounter for dental examina tion and cleaning without abnormal findings Z01.20 [facility] [address] [id number] [address] [place] [address] [phone] Dec, Dental examination V72.2 [facility] [address] [facility] [id number] [address] [place] [phone] Mar, [facility] [address] [facility] [id number] [address] [place] [phone] Mar, [facility] [address] [facility] [id number] [address] [place] [phone] Mar, [facility] [address] [facility] [id number] [address] [place] [phone] Feb, IMMUNIZATIONS Vaccine Route Administration Date Status FLULAVAL QUAD 0.5ML (6 MO & UP) 2017 IM Intramuscular Apr 21 18 Administered SOCIAL HISTORY Never Assessed REASON FOR VISIT flu shot JStrasserRN PLAN OF CARE VITAL SIGNS MEDICATIONS Unknown Medications RESULTS No Results PROCEDURES Procedure Date Ordered Result Body Site FLULAVAL QUAD 0.5ML (6 MO & UP) 2018 Apr 21, 2018 SINGLE IMMUNIZATION ADMIN Apr 21, 2018 INSTRUCTIONS MEDICATIONS ADMINISTERED No Known Medications MEDICAL (GENERAL) HISTORY Type Description Date Medical History ASTHMA Medical History major depressive disorder Medical History anemia Medical History bipolar Medical History mild mr Medical History mood disorder Medical History epilepsy Medical History presbyopia Medical History schizophrenia Surgical History No know Surgical history
--- OUTSIDE RECORDS SUMMARY | 2019-10-23 08:36 | XMS REPORT ---
Author Author Mary Jane LIU Organization [facility] Address [address] [place] [address] Care Team Providers Care Canine Deputy Name Role Phone LIUDMITRIY NUNOSTEFANIA Unavailable PROBLEMS Unknown Problems ALLERGIES No Information ENCOUNTERS Encounter Location Date Diagnosis [facility] [address] [id number] [address] [place] [phone] 14 Jan, 2018 Dental examination Z01.20 [facility] [address] [id number] [address] [place] [address] [id number] Jan, Dental examination Z01.20 [facility] [address] [id number] [address] [place] [address] [phone] Jun, [facility] [address] [id number] [address] [place] [address] [phone] Apr, Encounter for dental examina tion and cleaning without abnormal findings Z01.20 [facility] [address] [id number] [address] [place] [address] [phone] Apr, Dental examination Z01.20 [facility] [address] [id number] [address] [place] [phone] Apr, Encounter for immunization Z 23 [facility] [address] [id number] [address] [place] [address] [id number] Jan, 2017 Encounter for dental examina tion and cleaning without abnormal findings Z01.20 [facility] [address] [id number] [phone] Oct, Dental examination Z01.20 [facility] [address] [id number] [address] [place] [address] [phone] Oct, Encounter for dental examina tion and cleaning without abnormal findings Z01.20 [facility] [address] [id number] [place] [phone] Dec, Dental examination V72.2 [facility] [address] [facility] [id number] [address] [place] [phone] Mar, [facility] [address] [facility] [id number] [address] [place] [phone] Mar, [facility] [address] [facility] [id number] [address] [place] [phone] Mar, [facility] [address] [facility] [id number] [address] [place] [phone] Feb, IMMUNIZATIONS No Known Immunizations SOCIAL HISTORY Never Assessed REASON FOR VISIT fine scaling. PLAN OF CARE VITAL SIGNS MEDICATIONS Unknown Medications RESULTS No Results PROCEDURES Procedure Date Ordered Result Body Site Dental no charge Feb 02, 2018 INSTRUCTIONS MEDICATIONS ADMINISTERED No Known Medications MEDICAL (GENERAL) HISTORY Type Description Date Medical History ASTHMA Medical History major depressive disorder Medical History anemia Medical History bipolar Medical History mild mr Medical History mood disorder Medical History epilepsy Medical History presbyopia Medical History schizophrenia Surgical History No know Surgical history
--- OUTSIDE RECORDS SUMMARY | 2019-10-23 08:36 | XMS REPORT ---
Author Author Mary Jane FONTAINEZEVRoldan Organization [facility] Address [address] [place] [address] Care Team Providers Care Glass Lined Tank Repairer Name Role Phone MANAN FONTAINE Unavailable PROBLEMS Unknown Problems ALLERGIES No Known Allergies ENCOUNTERS Encounter Location Date Diagnosis [facility] [address] [id number] [address] [place] [address] [phone] Jun, [facility] [address] [id number] [address] [place] [address] [phone] Apr, Encounter for dental examina tion and cleaning without abnormal findings Z01.20 [facility] [address] [id number] [address] [place] [address] [phone] Apr, Dental examination Z01.20 [facility] [address] [id number] [address] [place] [phone] Apr, Encounter for immunization Z 23 [facility] [address] [id number] [address] [place] [address] [phone] Jan, Encounter for dental examina tion and cleaning without abnormal findings Z01.[address] [id number] [phone] Oct, Dental examination Z01.20 [facility] [address] [id number] [address] [place] [address] [phone] Oct, Encounter for dental examina tion and cleaning without abnormal findings Z01.20 [facility] [address] [id number] [address] [place] [address] [phone] Dec, Dental examination V72.2 [facility] [address] [id number] [address] [place] [phone] Mar, [facility] [address] [id number] [address] [place] [phone] Mar, [facility] [address] [facility] [id number] [address] [place] [phone] Mar, [facility] [address] [facility] [id number] [address] [place] [phone] Feb, IMMUNIZATIONS No Known Immunizations SOCIAL HISTORY Never Assessed REASON FOR VISIT PLAN OF CARE Activity Details Follow Up prn Reason: VITAL SIGNS MEDICATIONS Medication Instructions Dosage Frequency Start Date End Date Duration S tatus Vitamin D 1000 UNIT Orally Once a day 1 tablet 24h Active Trazodone HCl 100 MG Orally Once a day 1 tablet at bedtime 24h Active Aripiprazole 5 MG Orally Once a day 1 tablet 24h Active Vitamin C 500 MG Active Pantoprazole Sodium 40 MG Orally Once a day 1 tablet 24h Active Multi-Vitamin - Orally Once a day 1 tablet 24h Active Naproxen 250 MG Orally Twice a day 1 tablet 12h Active Ferrous Fumarate 325 (106 Fe) MG Active Cyclobenzaprine HCl 5 MG Orally Three times a day 1 tablet as needed 8h Active Myrbetriq 50 MG Orally Once a day 1 tablet 24h Active Omeprazole 20 MG Orally Once a day 1 capsule 24h Active Phentermine HCl 30 MG Orally Once a day 1 capsule 24h Active RESULTS No Results PROCEDURES Procedure Date Ordered Result Body Site PERIODIC ORAL EXAMINATION May 17, 2017 BITEWINGS - FOUR FILMS May 17, 2017 INSTRUCTIONS MEDICATIONS ADMINISTERED No Known Medications MEDICAL (GENERAL) HISTORY Type Description Date Medical History ASTHMA
--- OUTSIDE RECORDS SUMMARY | 2019-10-23 08:36 | XMS REPORT ---
Author Author AntolinMary Jane DALEY Organization [facility] Address [address] [place] [address] Care Team Providers Care Qa Automation Developer Name Role Phone MANAN Luna Unavailable PROBLEMS Unknown Problems ALLERGIES No Information ENCOUNTERS Encounter Location Date Diagnosis [facility] [address] [id number] [address] [place] [address] [phone] Jan, [facility] [address] [id number] [address] [place] [address] [phone] Jun, [facility] [address] [id number] [address] [place] [address] [phone] Apr, Encounter for dental examina tion and cleaning without abnormal findings Z01.20 [facility] [address] [id number] [address] [place] [address] [phone] Apr, Dental examination Z01.20 [facility] [address] [place] [id number] [address] [place] [phone] Apr, Encounter for immunization Z 23 [facility] [address] [id number] [address] [place] [address] [id number] Jan, Encounter for dental examina tion and cleaning without abnormal findings Z01.20 [facility] [address] [id number] [phone] Oct, Dental examination Z01.20 [facility] [address] [id number] [address] [place] [address] [phone] Oct, Encounter for dental examina tion and cleaning without abnormal findings Z01.20 [facility] [address] [id number] [address] [place] [address] [phone] Dec, Dental examination V72.2 [facility] [address] [place] [id number] [address] [place] [phone] Mar, [facility] [address] [facility] [id number] [address] [place] [phone] Mar, [facility] [address] [facility] [id number] [address] [place] [phone] Mar, [facility] [address] [facility] [id number] [address] [place] [phone] Feb, IMMUNIZATIONS No Known Immunizations SOCIAL HISTORY Never Assessed REASON FOR VISIT PLAN OF CARE VITAL SIGNS MEDICATIONS Unknown Medications RESULTS No Results PROCEDURES No Known procedures INSTRUCTIONS MEDICATIONS ADMINISTERED No Known Medications MEDICAL (GENERAL) HISTORY Type Description Date Medical History ASTHMA
--- OUTSIDE RECORDS SUMMARY | 2019-10-23 08:36 | XMS REPORT ---
Author Author Mary Jane CHIN Organization [facility] Address Unknown Care Team Providers Care Shade Classifier Name Role Phone GIUSEPPEANTONIO SOMMERLEY Unavailable PROBLEMS No Known Problems ALLERGIES No Information ENCOUNTERS Encounter Location Date Diagnosis [facility] [address] [id number] [address] [place] [address] [phone] Oct, [facility] [address] [facility] [id number] [place] [phone] Mar, Encounter for immunization Z 23 [facility] [address] [facility] [id number] [address] [place] [phone] Jan, Rash R21 and Hives L50.9 [facility] [address] [id number] [address] [place] [address] [phone] Jan, [facility] [address] [facility] [id number] [address] [place] [phone] Jan, Sore throat J02.9 [facility] [address] [facility] [id number] [place] [address] [phone] Dec, Dental examination Z01.20 an d Periodontitis K05.30 [facility] [address] [id number] [address] [place] [address] [phone] Aug, Caries K02.9 [facility] [address] [facility] [id number] [address] [place] [address] [phone] Jun, Caries K02.9 [facility] [address] [facility] [id number] [address] [place] [phone] May, Viral upper respiratory trac t infection J06.9 [facility] [address] [id number] [address] [place] [address] [phone] May, Caries K02.9 [facility] [address] [id number] [address] [place] [phone] Apr, Dermatitis L30.9 [facility] [address] [id number] [address] [place] [phone] Apr, Encounter for immunization Z 23 [facility] [address] [id number] [address] [place] [phone] 14 Jan, 2018 Dental examination Z01.20 [facility] [address] [id number] [address] [place] [address] [phone] Jan, 2018 Dental examination Z01.20 [facility] [address] [id number] [address] [place] [address] [phone] 20 Jun, 2017 [facility] [address] [id number] [address] [place] [address] [phone] Apr, Encounter for dental examina tion and cleaning without abnormal findings Z01.20 [facility] [address] [id number] [address] [place] [address] [phone] Apr, Dental examination Z01.20 [facility] [address] [id number] [address] [place] [phone] Apr, Encounter for immunization Z 23 [facility] [address] [id number] [address] [place] [address] [id number] Jan, 2017 Encounter for dental examina tion and cleaning without abnormal findings Z01.[address] [id number] [phone] Oct, Dental examination Z01.20 [facility] [address] [id number] [address] [place] [address] [phone] Oct, Encounter for dental examina tion and cleaning without abnormal findings Z01.20 [facility] [address] [id number] [address] [place] [address] [phone] Dec, Dental examination V72.2 [facility] [address] [id number] [address] [place] [phone] Mar, [facility] [address] [facility] [id number] [address] [place] [phone] Mar, [facility] [address] [facility] [id number] [address] [place] [phone] Mar, [facility] [address] [facility] [id number] [address] [place] [phone] Feb, IMMUNIZATIONS No Known Immunizations SOCIAL HISTORY [...] epilepsy Medical History presbyopia Medical History schizophrenia Medical History acute kidney failure Surgical History hernia 08/2017 Hospitalization History hernia surgery 08/2017
--- OUTSIDE RECORDS SUMMARY | 2019-10-23 08:36 | XMS REPORT ---
Author Author Mary Jane LIU Organization [facility] Address [address] [place] [address] Care Team Providers Care Senior Quality Engineer Name Role Phone NOE STEFANIA Unavailable PROBLEMS Unknown Problems ALLERGIES Substance Reaction Event Type Date Status Phentermine HCl Unknown Drug Allergy Jan, Active ENCOUNTERS Encounter Location Date Diagnosis [facility] [address] [id number] [address] [place] [phone] Jan, Dental examination Z01.20 [facility] [id number] [place] [address] [phone] Jan, Dental examination Z01.20 [facility] [address] [id number] [place] [address] [phone] Jun, [facility] [address] [id number] [place] [address] [phone] Apr, Encounter for dental examina tion and cleaning without abnormal findings Z01.20 [facility] [address] [id number] [address] [place] [address] [phone] Apr, Dental examination Z01.20 [facility] [address] [id number] [address] [place] [phone] Apr, Encounter for immunization Z 23 [facility] [address] [id number] [address] [place] [address] [id number] Jan, 2017 Encounter for dental examina tion and cleaning without abnormal findings Z01.20 [facility] [address] [address] [id number] [place] [phone] Oct, Dental examination Z01.20 [facility] [address] [id number] [address] [place] [address] [phone] Oct, Encounter for dental examina tion and cleaning without abnormal findings Z01.20 [facility] [address] [id number] [address] [place] [phone] Dec, Dental examination V72.2 [facility] [address] [id number] [place] [phone] Mar, [facility] [address] [facility] [id number] [place] [phone] Mar, [facility] [address] [facility] [id number] [place] [phone] Mar, [facility] [address] [facility] [id number] [address] [place] [phone] Feb, IMMUNIZATIONS No Known Immunizations SOCIAL HISTORY Never Assessed REASON FOR VISIT recare PLAN OF CARE Activity Details Follow Up 2 - 3 Days Reason:fine scali ng w/cavitron VITAL SIGNS Blood pressure systolic 122 mmHg 2018-01-30 Blood pressure diastolic 78 mmHg 2018-01-30 MEDICATIONS Medication Instructions Dosage Frequency Start Date End Date Duration S tatus Pantoprazole Sodium 40 MG Orally Once a day 1 tablet 24h Active Multi-Vitamin - Orally Once a day 1 tablet 24h Active Phentermine HCl 30 MG Orally Once a day 1 capsule 24h Active Ferrous Fumarate 325 (106 Fe) MG Active Aripiprazole 5 MG Orally Once a day 1 tablet 24h Active Cyclobenzaprine HCl 5 MG Orally Three times a day 1 tablet as needed 8h Active Vitamin C 500 MG Active Trazodone HCl 100 MG Orally Once a day 1 tablet at bedtime 24h Active Vitamin D 1000 UNIT Orally Once a day 1 tablet 24h Active Omeprazole 20 MG Orally Once a day 1 capsule 24h Active Myrbetriq 50 MG Orally Once a day 1 tablet 24h Active Naproxen 250 MG Orally Twice a day 1 tablet 12h Active RESULTS No Results PROCEDURES Procedure Date Ordered Result Body Site PERIODIC ORAL EXAMINATION Jan 30, 2018 BITEWINGS - FOUR FILMS Jan 30, 2018 PROPHYLAXIS - ADULT Jan 30, 2018 INSTRUCTIONS MEDICATIONS ADMINISTERED No Known Medications MEDICAL (GENERAL) HISTORY Type Description Date Medical History ASTHMA Medical History major depressive disorder Medical History anemia Medical History bipolar Medical History mild mr Medical History mood disorder Medical History epilepsy Medical History presbyopia Medical History schizophrenia Surgical History No know Surgical history
--- OUTSIDE RECORDS SUMMARY | 2019-10-23 08:37 | XMS REPORT ---
Author Author Mary Jane PRADO [facility] Address [address] [place] [address] Phone Unavailable Care Team Providers Care Operating Room Registered Nurse Name Role Phone MARIELA PRADO Unavailable Unavailable PROBLEMS Unknown Problems ALLERGIES No Known Allergies ENCOUNTERS Encounter Location Date Diagnosis [facility] [address] [id number] [address] [place] [address] [phone] Jun, [facility] [id number] [place] [address] [phone] Apr, Encounter for dental examina tion and cleaning without abnormal findings Z01.20 [facility] [id number] [place] [address] [phone] Apr, Dental examination Z01.20 [facility] [address] [id number] [address] [place] [phone] Apr, Encounter for immunization Z 23 [facility] [address] [facility] [id number] [place] [address] [phone] Jan, Encounter for dental examina tion and cleaning without abnormal findings Z01.[address] [id number] [phone] Oct, Dental examination Z01.20 [facility] [address] [id number] [address] [place] [address] [phone] Oct, Encounter for dental examina tion and cleaning without abnormal findings Z01.20 [facility] [address] [id number] [address] [place] [address] [phone] Dec, Dental examination V72.2 [facility] [place] [address] [id number] [address] [place] [phone] Mar, [facility] [place] [address] [facility] [id number] [address] [place] [phone] Mar, [facility] [place] [address] [facility] [id number] [place] [address] Mar, [facility] [place] [address] [facility] [id number] [address] [place] [phone] Feb, IMMUNIZATIONS No Known Immunizations SOCIAL HISTORY Never Assessed REASON FOR VISIT ADULT OUTREACH [facility] PLAN OF CARE Activity Details Follow Up [facility] STAFF TO CALL Reason: RESTORATIVE WITH DR FONTAINE VITAL SIGNS MEDICATIONS Medication Instructions Dosage Frequency Start Date End Date Duration S tatus Naproxen 250 MG Orally Twice a day 1 tablet 12h Active Myrbetriq 50 MG Orally Once a day 1 tablet 24h Active Vitamin D 1000 UNIT Orally Once a day 1 tablet 24h Active Multi-Vitamin - Orally Once a day 1 tablet 24h Active Phentermine HCl 30 MG Orally Once a day 1 capsule 24h Active Vitamin C 500 MG Active Trazodone HCl 100 MG Orally Once a day 1 tablet at bedtime 24h Active Omeprazole 20 MG Orally Once a day 1 capsule 24h Active Ferrous Fumarate 325 (106 Fe) MG Active Aripiprazole 5 MG Orally Once a day 1 tablet 24h Active Cyclobenzaprine HCl 5 MG Orally Three times a day 1 tablet as needed 8h Active Pantoprazole Sodium 40 MG Orally Once a day 1 tablet 24h Active RESULTS No Results PROCEDURES Procedure Date Ordered Result Body Site PROPHYLAXIS - ADULT May 17, 2017 TOPICAL FLUORIDE VARNISH May 17, 2017 INSTRUCTIONS MEDICATIONS ADMINISTERED No Known Medications MEDICAL (GENERAL) HISTORY Type Description Date Medical History ASTHMA
--- OUTSIDE RECORDS SUMMARY | 2019-10-23 08:37 | XMS REPORT ---
Author Author Mary Jane PRADO [facility] Address [address] [place] [address] Phone Unavailable Care Team Providers Care Harvest Worker Fruit Name Role Phone MARIELA PRADO Unavailable Unavailable PROBLEMS Unknown Problems ALLERGIES No Known Allergies ENCOUNTERS Encounter Location Date Diagnosis [facility] [address] [id number] [address] [place] [phone] Aug, [facility] [id number] [place] [address] [phone] Jun, [facility] [address] [facility] [id number] [place] [address] [phone] Apr, Encounter for dental examina tion and cleaning without abnormal findings Z01.20 [facility] [address] [id number] [address] [place] [address] [phone] Apr, Dental examination Z01.20 [facility] [address] [id number] [address] [place] [phone] Apr, Encounter for immunization Z 23 [facility] [address] [id number] [address] [place] [address] [phone] Jan, Encounter for dental examina tion and cleaning without abnormal findings [facility]01.[address] [facility] [address] [id number] [phone] Oct, Dental examination Z01.20 [facility] [address] [id number] [address] [place] [address] [phone] Oct, Encounter for dental examina tion and cleaning without abnormal findings Z01.20 [facility] [address] [id number] [address] [place] [address] [phone] Dec, Dental examination V72.2 [facility] [address] [id number] [address] [place] [phone] Mar, [facility] [address] [facility] [id number] [address] [place] [phone] Mar, [facility] [address] [facility] [id number] [address] [place] [phone] Mar, [facility] [address] [facility] [id number] [address] [place] [phone] Feb, IMMUNIZATIONS No Known Immunizations SOCIAL HISTORY Never Assessed REASON FOR VISIT ADULT OUTREACH [facility] PLAN OF CARE Activity Details Follow Up 3 Months Reason:ON SITE RECA LL VITAL SIGNS MEDICATIONS Medication Instructions Dosage Frequency Start Date End Date Duration S tatus Ferrous Fumarate 325 (106 Fe) MG Active Trazodone HCl 100 MG Orally Once a day 1 tablet at bedtime 24h Active Pantoprazole Sodium 40 MG Orally Once a day 1 tablet 24h Active Aripiprazole 5 MG Orally Once a day 1 tablet 24h Active Myrbetriq 50 MG Orally Once a day 1 tablet 24h Active Naproxen 250 MG Orally Twice a day 1 tablet 12h Active Cyclobenzaprine HCl 5 MG Orally Three times a day 1 tablet as needed 8h Active Vitamin D 1000 UNIT Orally Once a day 1 tablet 24h Active Phentermine HCl 30 MG Orally Once a day 1 capsule 24h Active Omeprazole 20 MG Orally Once a day 1 capsule 24h Active Multi-Vitamin - Orally Once a day 1 tablet 24h Active Vitamin C 500 MG Active RESULTS No Results PROCEDURES Procedure Date Ordered Result Body Site PROPHYLAXIS - ADULT November 09, 2016 INSTRUCTIONS MEDICATIONS ADMINISTERED No Known Medications MEDICAL (GENERAL) HISTORY Type Description Date Medical History ASTHMA
--- OUTSIDE RECORDS SUMMARY | 2019-10-23 08:37 | XMS REPORT ---
Author Author Mary Jane PRADO [facility] Address [address] [place] [address] Phone Unavailable Care Team Providers Care Programmer Numerical Control Name Role Phone MARIELA PRADO Unavailable Unavailable PROBLEMS Unknown Problems ALLERGIES No Known Allergies ENCOUNTERS Encounter Location Date Diagnosis [facility] [address] [id number] [address] [place] [address] [phone] Jun, [facility] [id number] [place] [address] [phone] Apr, Encounter for dental examina tion and cleaning without abnormal findings Z01.20 [facility] [address] [place] [address] [phone] Apr, Dental examination Z01.20 [facility] [address] [id number] [address] [place] [phone] Apr, Encounter for immunization Z 23 [facility] [address] [facility] [id number] [place] [address] [phone] Jan, Encounter for dental examina tion and cleaning without abnormal findings Z01.[address] [id number] [phone] Oct, Dental examination Z01.20 [facility] [address] [id number] [address] [place] [address] [phone] Oct, Encounter for dental examina tion and cleaning without abnormal findings Z01.20 [facility] [address] [id number] [address] [place] [address] [phone] Dec, Dental examination V72.2 [facility] [address] [id number] [address] [place] [phone] Mar, [facility] [address] [facility] [id number] [address] [place] [phone] Mar, [facility] [address] [facility] [id number] [place] [address] Mar, [facility] [address] [facility] [id number] [address] [place] [phone] Feb, IMMUNIZATIONS No Known Immunizations SOCIAL HISTORY Never Assessed REASON FOR VISIT ADULT OUTREACH [facility] PLAN OF CARE Activity Details Follow Up 3 Months Reason:ON SITE RECA LL VITAL SIGNS MEDICATIONS Medication Instructions Dosage Frequency Start Date End Date Duration S tatus Aripiprazole 5 MG Orally Once a day 1 tablet 24h Active Myrbetriq 50 MG Orally Once a day 1 tablet 24h Active Naproxen 250 MG Orally Twice a day 1 tablet 12h Active Vitamin C 500 MG Active Ferrous Fumarate 325 (106 Fe) MG Active Phentermine HCl 30 MG Orally Once a day 1 capsule 24h Active Multi-Vitamin - Orally Once a day 1 tablet 24h Active Pantoprazole Sodium 40 MG Orally Once a day 1 tablet 24h Active Omeprazole 20 MG Orally Once a day 1 capsule 24h Active Vitamin D 1000 UNIT Orally Once a day 1 tablet 24h Active Trazodone HCl 100 MG Orally Once a day 1 tablet at bedtime 24h Active Cyclobenzaprine HCl 5 MG Orally Three times a day 1 tablet as needed 8h Active RESULTS No Results PROCEDURES Procedure Date Ordered Result Body Site PROPHYLAXIS - ADULT Feb 01, 2017 TOPICAL FLUORIDE VARNISH Feb 01, 2017 INSTRUCTIONS MEDICATIONS ADMINISTERED No Known Medications MEDICAL (GENERAL) HISTORY Type Description Date Medical History ASTHMA
--- OUTSIDE RECORDS SUMMARY | 2019-10-23 08:37 | XMS REPORT | Continuity of Care Document ---
Demographics Preferred Language Unknown Marital Status Unknown Moravian Affiliation Unknown Race Unknown Ethnic Group Unknown Author Organization Unknown Address Unknown Phone Unavailable Allergies Active Description Code Type Severity Reaction Onset Reported/Identified Relationship to Patient Clinical Status Yes NO KNOWN DRUG ALLERGIES NO KNOWN DRUG ALLERG UNKNOWN Yes NO KNOWN DRUG ALLERGIES UNKNOWN NO KNOWN DRUG ALLERG Yes NO KNOWN DRUG ALLERGIES UNKNOWN UNKNOWN Yes PHENTERMINE MODERATE IRREGULAR HEART RATE Yes PHENTERMINE MODERATE MODERATE Yes aspirin [id number] Drug Allergy Unknown N/A 12/02/2016 Medications Medication Packaging Start Date St op Date Route Dosage Sig LACTATED RINGERS 1000CC IV BAG INJ 0 ml 08/04/2016 08/11/2016 CONTINUOUSEVERY 0 Hour LACTATED RINGERS 1000CC IV BAG INJ ml 08/29/2017 08/30/2017 CONTINUOUSEVERY 0 Hour CEFAZOLIN VIAL INJ 1 GM (ANCEF) GM 08/29/2017 08/29/2017 ONCE&1030 MORPHINE FENCE LABORER SYRINGE INJ 30 MG/30CC (MORPHINE FENCE LABORER SYRINGE) MG 08/29/2017 09/01/2017 CONTINUOUSEVERY 0 Hour D5 LAC RINGERS 1000CC IV BAG INJ ml 08/29/2017 09/05/2017 CONTINUOUSEVERY 0 Hour FENTANYL INJ 100 MCG/2CC VIAL MCG 08/29/2017 08/29/2017 ONCE&1324 OXYCODONE 5MG/APAP 325MG TAB(PERCOCET-5) TAB 08/29/2017 09/05/2017 PRN Q4H ONDANSETRON VIAL INJ 4 MG/2CC (ZOFRAN 2CC VIAL) MG 08/29/2017 09/05/2017 PRN Q4H ENALAPRIL VIAL INJ 1.25 MG/CC (VASOTEC VIA L) MG 08/29/2017 09/01/2017 PRN Q6H Normal Saline 1000cc W/KCl 20mEq ml 09/01/2017 09/01/2017 ONCE&2007 NORMAL SALINE 1000CC IV BAG INJ 0.9 % (NS 1000CC IV BAG) ml 09/01/2017 09/16/2017 CONTINUOUSEVERY 0 Hour LEVOFLOXACIN TAB 750 MG (LEVAQUIN) MG 09/01/2017 09/01/2017 ONCE&0 ONDANSETRON VIAL INJ 4 MG/2CC (ZOFRAN 2CC VIAL) MG 09/01/2017 09/01/2017 ONCE&0 METRONIDAZOLE IV PREMIX BAG INJ 500 MG/100CC (FLAGYL IV 100CC BAG) MG 09/01/2017 09/01/2017 ONCE&0 LACTATED RINGERS 1000CC IV BAG INJ ml 09/01/2017 09/01/2017 ONCE&0 PANTOPAZOLE VIAL INJ 40 MG (PROTONIX IV) MG 09/01/2017 09/01/2017 ONCE&2119 ONDANSETRON VIAL INJ 4 MG/2CC (ZOFRAN 2CC VIAL) MG 09/01/2017 09/08/2017 PRN EVERY 0 Hour FENTANYL INJ 100 MCG/2CC VIAL MCG 09/01/2017 09/04/2017 PRN Q2H METRONIDAZOLE IV PREMIX BAG INJ 500 MG/100CC (FLAGYL IV 100CC BAG) MG 09/01/2017 09/11/2017 Q8H&0600,1400,22 00 D5 1/2 NS 1000CC IV BAG INJ ml 09/01/2017 09/08/2017 CONTINUOUSEVERY 0 Hour NORMAL SALINE 250CC IV BAG I NJ 0.9 % (NS 250CC IV BAG) ml 09/02/2017 09/02/2017 ONCE&0025 LACTATED RINGERS 1000CC IV BAG INJ ml 09/02/2017 09/02/2017 ONCE&0025 LACTATED RINGERS 1000CC IV BAG INJ ml 09/02/2017 09/09/2017 CONTINUOUSEVERY 0 Hour PANTOPAZOLE VIAL INJ 40 MG (PROTONIX IV) MG 09/02/2017 09/11/2017 BID&0800,2000 ENOXAPARIN SYRINGE INJ 30 MG (LOVENOX SYRI NGE) MG 09/02/2017 09/11/2017 Daily&0900 Albumin, human 25 % IV paren teral solution (25 Gm in 100mL) GM 09/02/2017 09/02/2017 ONCE&0929 D5 LAC RINGERS 1000CC IV BAG INJ ml 09/02/2017 09/09/2017 CONTINUOUSEVERY 0 Hour KETOROLAC VIAL INJ 30 MG/CC (TORADOL VIAL) MG 09/02/2017 09/05/2017 PRN EVERY 6 Hour Albumin, human 25 % IV paren teral solution (25 Gm in 100mL) GM 09/02/2017 09/03/2017 Q8H&0700,2300 FUROSEMIDE VIAL INJ 20 MG (LASIX VIAL) MG 09/02/2017 09/02/2017 ONCE&1732 LACTATED RINGERS 1000CC IV BAG INJ ml 09/02/2017 09/02/2017 ONCE&1732 FENTANYL INJ 100 MCG/2CC VIAL MCG 09/02/2017 09/05/2017 Q2H&0200,0400,0600,0800,1000,1200,1400,1600,1800,2000,2200,2359 ENOXAPARIN SYRINGE INJ 40 MG (LOVENOX SYRI NGE) MG 09/02/2017 09/13/2017 BID&0800,2000 LEVOFLOXACIN TAB 750 MG (LEVAQUIN) MG 09/02/2017 09/08/2017 Daily&2100 FUROSEMIDE VIAL INJ 40 MG (LASIX VIAL) MG 09/03/2017 09/03/2017 ONCE&0931 FUROSEMIDE VIAL INJ 20 MG (LASIX VIAL) MG 09/03/2017 09/03/2017 ONCE&0931 D5 1/2 NS 1000CC [id number] INJ ml 09/03/2017 09/10/2017 CONTINUOUSEVERY 0 Hour NORMAL SALINE 250CC IV BAG I NJ 0.9 % (NS 250CC IV BAG) ml 09/03/2017 09/03/2017 ONCE&0941 D5 1/2 NS 1000CC [id number] INJ ml 09/03/2017 09/10/2017 CONTINUOUSEVERY 0 Hour LEVOFLOXACIN PREMIX IV BAG I NJ 750 MG (LEVAQUIN PREMIX IV BAG) MG 09/03/2017 09/09/2017 Daily&2100 ENOXAPARIN SYRINGE INJ 40 MG (LOVENOX SYRI NGE) MG 09/04/2017 09/13/2017 Daily&0900 D5 NORMAL SALINE 1000CC INJ (D5NS 1000CC IV BAG) ml 09/04/2017 09/11/2017 CONTINUOUSEVERY 0 Hour POTASSIUM CL 40MEQ VIAL INJ 40 MEQ/20CC (KCL VIAL) MEQ 09/04/2017 09/11/2017 CONTINUOUSEVERY 0 Hour FUROSEMIDE VIAL INJ 20 MG (LASIX VIAL) MG 09/04/2017 09/04/2017 ONCE&1559 D5 1/2 NS 1000CC [id number] INJ ml 09/04/2017 09/11/2017 CONTINUOUSEVERY 0 Hour ZOLPIDEM TAB 5 MG (AMBIEN) M G 09/04/2017 09/04/2017 ONCE&2100 Clinimix E 5%/D15% (amino ac ids 5%-dkmcz-Gk-M88%) IV TPN KIT MLS 09/05/2017 09/19/2017 CONTINUOUSEVERY 0 Hour TPN 2 LITER KIT (CLINIMIX 5%/25%) ml 09/05/2017 09/19/2017 CONTINUOUSEVERY 0 Hour NORMAL SALINE 1000CC IV BAG INJ 0.9 % (NS 1000CC IV BAG) ml 09/05/2017 09/20/2017 CONTINUOUSEVERY 0 Hour FOLIC ACID VIAL INJ 5 MG/CC MG 09/05/2017 09/12/2017 CONTINUOUSEVERY 0 Hour FOLIC ACID VIAL INJ 5 MG/CC MG 09/05/2017 09/05/2017 ONCE&1340 Clinimix E 5%/D15% (amino ac ids 5%-hiphi-Zn-K83%) IV TPN KIT MLS 09/05/2017 09/19/2017 CONTINUOUSEVERY 0 Hour FAT EMULSION 250CC IV BAG IN J 20 % (INTRALIPID 250CC IV BAG) ml 09/05/2017 09/12/2017 CONTINUOUSEVERY 0 Hour ZOLPIDEM TAB 5 MG (AMBIEN) M G 09/05/2017 09/12/2017 PRN QHS NORMAL SALINE 1000CC IV BAG INJ 0.9 % (NS 1000CC IV BAG) ml 09/06/2017 09/21/2017 CONTINUOUSEVERY 0 Hour MULTIPLE VITAMIN INFUSION IN J (MVI ADULT 2 VIAL KIT) VIALS 09/06/2017 09/12/2017 Daily&0900 TRACE MINERALS INJ (MULTITRACE-5) ml 09/06/2017 09/15/2017 Daily&0900 ONDANSETRON VIAL INJ 4 MG/2CC (ZOFRAN 2CC VIAL) MG 09/06/2017 09/13/2017 PRN Q4H KETOROLAC VIAL INJ 30 MG/CC (TORADOL VIAL) MG 09/06/2017 09/11/2017 PRN Q8H METOCLOPRAMIDE VIAL INJ 10 M G/2CC (REGLAN 2CC VIAL) MG 09/06/2017 09/16/2017 PRN Q8H FOLIC ACID VIAL INJ 5 MG/CC MG 09/07/2017 09/07/2017 ONCE&1001 ENOXAPARIN SYRINGE INJ 30 MG (LOVENOX SYRI NGE) MG 09/07/2017 09/17/2017 Daily&0900 ENOXAPARIN SYRINGE INJ 30 MG (LOVENOX SYRI NGE) MG 09/08/2017 09/08/2017 ONCE&0800 FOLIC ACID VIAL INJ 5 MG/CC MG 09/08/2017 09/15/2017 CONTINUOUSEVERY 0 Hour FOLIC ACID VIAL INJ 5 MG/CC MG 09/08/2017 09/15/2017 CONTINUOUSEVERY 0 Hour ONDANSETRON VIAL INJ 4 MG/2CC (ZOFRAN 2CC VIAL) MG 09/08/2017 09/15/2017 PRN Q6H Heparin, FLUSH IV syringe 500 units UNITS 09/10/2017 09/16/2017 Daily&0900 Problems Date Dx Coded Attending Type Code Diagnosis Diagnosed By 04/20/1430 HELEN RAMESH, NGUYỄN Bose Ot M75.101 UNSP ROTATR-CUFF TEAR/RUPTR OF RIGHT BARNEY 04/20/1430 HELEN RAMESH, NGUYỄN Bose Ot Z01.812 ENCOUNTER FOR PREPROCEDURAL LABORATORY E 04/20/1430 NGUYỄN CERVANTES MD, Ot Z11.59 ENCOUNTER FOR SCREENING FOR OTHER VIRAL 12/17/2007 GINNY PANDAS, MILES J 72 9.5 PAIN IN LIMB 04/08/2008 GINNY PANDAS, MILES J 46 5.9 UPPER RESPIRATORY INFECTION 04/08/2008 GINNY PANDAS, MILES J V7 0.3 SPORTS/SCHOOL EXAM 11/13/2008 WHITE DDS, MILES J 345.90 EPILEPSY UNSPECIFIED WITHOUT INTRACTABLE EPILEPSY 01/28/2009 WHITE DDS, MILES J 30 0.4 DYSTHYMIC DIS 01/28/2009 GINNY DDS, MILES J 31 7 MILD MENTAL RETARDATION 08/04/2016 Shreya Carrillo A 285.9 08/04/2016 Shreya Carrillo 455.9 RESIDUAL HEMORRHOIDAL SKIN TAGS 08/04/2016 Shreya Carrillo 530.81 ESOPHAGEAL REFLUX 08/04/2016 Shreya Carrillo 535.50 UNSPECIFIED GASTRITIS AND GASTRODUODENIT IS, WITHOUT MENTION OF HEMORRHAGE 08/04/2016 Shreya Carrillo 552.3 08/04/2016 Shreya Carrillo W 562.12 DIVERTICULOSIS OF COLON WITH HEMORRHAGE 08/04/2016 Shreya Carrillo W 578.1 08/04/2016 Shreya Carrillo A D64.9 ANEMIA, UNSPECIFIED 08/04/2016 Shreya Carrillo K21.9 GASTRO-ESOPHAGEAL REFLUX DISEASE WITHOUT ESOPHAGITIS 08/04/2016 Shreya Carrillo W K29.60 OTHER GASTRITIS WITHOUT BLEEDING 08/04/2016 Shreya Carrillo W K44.9 DIAPHRAGMATIC HERNIA WITHOUT OBSTRUCTION OR GANGRENE 08/04/2016 Shreya Carrillo W 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 08/04/2016 Shreya Carrillo W K64.4 RESIDUAL HEMORRHOIDAL SKIN TAGS 08/04/2016 Shreya Carrillo W K92.1 MELENA 11/04/2016 Ot 780.79 OTH MALAISE FATIGUE 11/04/2016 Ot 794.5 ABN THYROID FUNCT STUDY 11/04/2016 Ot 780.79 OTH MALAISE FATIGUE 11/04/2016 Ot 794.5 ABN THYROID FUNCT STUDY 11/04/2016 Ot V76.12 OTH SCREEN MAMMO- MALIGN NEOPLASM OF ALEKS 11/04/2016 Ot 780.39 OTH ER CONVULSIONS 11/04/2016 YASIR MARTIN MD Ot 793.82 [...] FUNCT STUDY 11/08/2016 Ot V76.12 OTH SCREEN MAMMO- MALIGN NEOPLASM OF ALEKS 11/08/2016 Ot 780.39 OTH ER CONVULSIONS 11/08/2016 MARTIN MD, YASIR L Ot 793.82 INCONCLUSIVE MAMMOGRAM 11/08/2016 YASIR MARTIN MD L Ot V76.12 OTH SCREEN MAMMO-MALIGN NEOPLASM OF AELKS 11/08/2016 YASIR MARTIN MD Ot V76.12 OTH SCREEN MAMMO-MALIGN NEOPLASM OF ALEKS 11/08/2016 YASIR MARTIN MD Ot 610.0 SOLITARY CYST OF BREAST 11/09/2016 YASIR MARTIN MD L Ot N6 3 UNSPECIFIED LUMP IN BREAST 11/09/2016 YASIR MARTIN MD L Ot Z12.31 ENCNTR SCREEN MAMMOGRAM FOR MALIGNANT NE 11/09/2016 YASIR MARTIN MD L Ot N6 3 UNSPECIFIED LUMP IN BREAST 11/09/2016 YASIR MARTIN MD L Ot Z12.31 ENCNTR SCREEN MAMMOGRAM FOR MALIGNANT NE 11/18/2016 YASIR MARTIN MD Ot N6 3 UNSPECIFIED LUMP IN BREAST 11/18/2016 YASIR MARTIN MD Ot Z12.31 ENCNTR SCREEN MAMMOGRAM FOR MALIGNANT NE 11/29/2016 YASIR MARTIN MD L Ot 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 9 OBESITY, UNSPECIFIED 12/02/2016 SATISH RAMESH, MARY Momin Ot R06. 02 SHORTNESS OF BREATH 12/02/2016 SATISH RAMESH, MARY Momin Ot Z68. 37 BODY MASS INDEX (BMI) 37.0-37.9, ADULT 02/15/2017 W 278.00 OBE SITY, UNSPECIFIED 02/15/2017 W 477 ALLERG IC RHINITIS 02/15/2017 A 530.11 REF LUX ESOPHAGITIS 02/15/2017 W E66.9 OBES ITY, UNSPECIFIED 02/15/2017 W J30.9 OTILIA RGIC RHINITIS, UNSPECIFIED 02/15/2017 A K21.0 CLEMENT RO-ESOPHAGEAL REFLUX DISEASE WITH ESOPHAGITIS 08/29/2017 Shreya Carrillo W 552.3 DIAPHRAGMATIC HERNIA WITH OBSTRUCTION 08/29/2017 Shreya Carrillo W K44.9 DIAPHRAGMATIC HERNIA WITHOUT OBSTRUCTION OR GANGRENE 08/30/2017 Shreya Carrillo W 530.81 ESOPHAGEAL REFLUX 08/30/2017 Lorena Shreya A 552.3 DIAPHRAGMATIC HERNIA WITH OBSTRUCTION 08/30/2017 Shreya Carrillo W 787.20 DYSPHAGIA, UNSPECIFIED 08/30/2017 Lorena, Shreya W K21.9 GASTRO-ESOPHAGEAL REFLUX DISEASE WITHOUT ESOPHAGITIS 08/30/2017 LorenaRenato wellscamille A K44.9 DIAPHRAGMATIC HERNIA WITHOUT OBSTRUCTION OR GANGRENE 08/30/2017 Shreya Carrillo W R13.10 DYSPHAGIA, UNSPECIFIED 09/01/2017 YASIR MARTIN W 560.9 UNSPECIFIED INTESTINAL OBSTRUCTION 09/01/2017 YASIR MARTIN W K56.60 UNSPECIFIED INTESTINAL OBSTRUCTION 09/02/2017 YASIR MARTIN W 560.9 UNSPECIFIED INTESTINAL OBSTRUCTION 09/02/2017 YASIR MARTIN W K56.60 UNSPECIFIED INTESTINAL OBSTRUCTION 09/04/2017 YASIR MARTIN W 564.4 OTHER POSTOPERATIVE FUNCTIONAL DISORDERS 09/04/2017 YASIR MARTIN K91.89 OTH POSTPROCEDURAL COMPLICATIONS AND DISORDERS OF DGSTV SYS 09/04/2017 YASIR MARTIN 288.60 LEUKOCYTOSIS, UNSPECIFIED 09/04/2017 YASIR MARTIN W 564.4 OTHER POSTOPERATIVE FUNCTIONAL DISORDERS 09/04/2017 YASIR MARTIN D72.829 ELEVATED WHITE BLOOD CELL COUNT, UNSPECIFIED 09/04/2017 YASIR MARTIN K91.89 OTH POSTPROCEDURAL COMPLICATIONS AND DISORDERS OF DGSTV SYS 09/04/2017 YASIR MARTIN 288.60 LEUKOCYTOSIS, UNSPECIFIED 09/04/2017 YASIR MARTIN 511.1 PLEURISY WITH EFFUSION, WITH MENTION OF A BACTERIAL CAUSE OTHER THAN TUBERCULOSIS 09/04/2017 YASIR MARTIN W 564.4 OTHER POSTOPERATIVE FUNCTIONAL DISORDERS 09/04/2017 YASIR MARTIN D72.829 ELEVATED WHITE BLOOD CELL COUNT, UNSPECIFIED 09/04/2017 YASIR MARTIN J90 PLEURAL EFFUSION, NOT ELSEWHERE CLASSIFIED 09/04/2017 YASIR MARTIN K91.89 OTH POSTPROCEDURAL COMPLICATIONS AND DISORDERS OF DGSTV SYS 09/04/2017 YASIR MARTIN 288.60 LEUKOCYTOSIS, UNSPECIFIED 09/04/2017 MARTIN, YASIR W 511.1 PLEURISY WITH EFFUSION, WITH MENTION OF A BACTERIAL CAUSE OTHER THAN TUBERCULOSIS 09/04/2017 MARIO YASIR W 564.4 OTHER POSTOPERATIVE FUNCTIONAL DISORDERS 09/04/2017 YASIR MARTIN W D72.829 ELEVATED WHITE BLOOD CELL COUNT, UNSPECIFIED 09/04/2017 YASIR MARTIN W J90 PLEURAL EFFUSION, NOT ELSEWHERE CLASSIFIED 09/04/2017 MARTINNEERAJYASIR W K91.89 OTH POSTPROCEDURAL COMPLICATIONS AND DISORDERS OF DGSTV SYS 09/08/2017 YASIR MARTIN W 288.60 LEUKOCYTOSIS, UNSPECIFIED 09/08/2017 YASIR MARTIN W 511.1 PLEURISY WITH EFFUSION, WITH MENTION OF A BACTERIAL CAUSE OTHER THAN TUBERCULOSIS 09/08/2017 YASIR MARTIN W 564.4 OTHER POSTOPERATIVE FUNCTIONAL DISORDERS 09/08/2017 MARTINYASIR Heriberto D72.829 ELEVATED WHITE BLOOD CELL COUNT, UNSPECIFIED 09/08/2017 YASIR MARTIN W J90 PLEURAL EFFUSION, NOT ELSEWHERE CLASSIFIED 09/08/2017 MARTINNEERAJYASIR W K91.89 OTH POSTPROCEDURAL COMPLICATIONS AND DISORDERS OF DGSTV SYS 09/11/2017 YASIR MARTIN W 288.60 LEUKOCYTOSIS, UNSPECIFIED 09/11/2017 MARTINNEERAJYASIR W 511.1 PLEURISY WITH EFFUSION, WITH MENTION OF A BACTERIAL CAUSE OTHER THAN TUBERCULOSIS 09/11/2017 MARIO YASIR W 564.4 OTHER POSTOPERATIVE FUNCTIONAL DISORDERS 09/11/2017 YASIR MARTIN W D72.829 ELEVATED WHITE BLOOD CELL COUNT, UNSPECIFIED 09/11/2017 NEERAJ MARTINHEL W J90 PLEURAL EFFUSION, NOT ELSEWHERE CLASSIFIED 09/11/2017 YASIR MARTIN W K91.89 OTH POSTPROCEDURAL COMPLICATIONS AND DISORDERS OF DGSTV SYS 09/11/2017 MARTINYASIR W 288.60 LEUKOCYTOSIS, UNSPECIFIED 09/11/2017 MARTINNEERAJYASIR W 511.1 PLEURISY WITH EFFUSION, WITH MENTION OF A BACTERIAL CAUSE OTHER THAN TUBERCULOSIS 09/11/2017 MAIRO YASIR W 564.4 OTHER POSTOPERATIVE FUNCTIONAL DISORDERS 09/11/2017 MARTINYASIR W D72.829 ELEVATED WHITE BLOOD CELL COUNT, UNSPECIFIED 09/11/2017 MARTINNEERAJYASIR W J90 PLEURAL EFFUSION, NOT ELSEWHERE CLASSIFIED 09/11/2017 YASIR MARTIN W K91.89 OTH POSTPROCEDURAL COMPLICATIONS AND DISORDERS OF DGSTV SYS 09/11/2017 YASIR MARTIN W 288.60 LEUKOCYTOSIS, UNSPECIFIED 09/11/2017 YASIR MARTIN W 511.1 PLEURISY WITH EFFUSION, WITH MENTION OF A BACTERIAL CAUSE OTHER THAN TUBERCULOSIS 09/11/2017 YASIR MARTIN W 564.4 OTHER POSTOPERATIVE FUNCTIONAL DISORDERS 09/11/2017 YASIR MARTIN W D72.829 ELEVATED WHITE BLOOD CELL COUNT, UNSPECIFIED 09/11/2017 MARTIN YASIR W J90 PLEURAL EFFUSION, NOT ELSEWHERE CLASSIFIED 09/11/2017 YASIR MARTIN W K91.89 OTH POSTPROCEDURAL COMPLICATIONS AND DISORDERS OF DGSTV SYS 09/11/2017 YASIR MARTIN W 280.0 IRON DEFICIENCY ANEMIA SECONDARY TO BLOOD LOSS (CHRONIC) 09/11/2017 YASIR MARTIN W 288.60 LEUKOCYTOSIS, UNSPECIFIED 09/11/2017 YASIR MARTIN W 511.1 PLEURISY WITH EFFUSION, WITH MENTION OF A BACTERIAL CAUSE OTHER THAN TUBERCULOSIS 09/11/2017 YASIR MARTIN W 564.4 OTHER POSTOPERATIVE FUNCTIONAL DISORDERS 09/11/2017 YASIR MARTIN W D50.0 IRON DEFICIENCY ANEMIA SECONDARY TO BLOOD LOSS (CHRONIC) 09/11/2017 YASIR MARTIN D72.829 ELEVATED WHITE BLOOD CELL COUNT, UNSPECIFIED 09/11/2017 YASIR MARTIN W J90 PLEURAL EFFUSION, NOT ELSEWHERE CLASSIFIED 09/11/2017 YASIR MARTIN K91.89 OTH POSTPROCEDURAL COMPLICATIONS AND DISORDERS OF DGSTV SYS 09/11/2017 YASIR MARTIN W 276.51 09/11/2017 YASIR MARTIN W 280.0 IRON DEFICIENCY ANEMIA SECONDARY TO BLOOD LOSS (CHRONIC) 09/11/2017 YASIR MARTIN W 288.60 LEUKOCYTOSIS, UNSPECIFIED 09/11/2017 YASIR MARTIN W 511.1 PLEURISY WITH EFFUSION, WITH MENTION OF A BACTERIAL CAUSE OTHER THAN TUBERCULOSIS 09/11/2017 YASIR MARTIN W 564.4 OTHER POSTOPERATIVE FUNCTIONAL DISORDERS 09/11/2017 YASIR MARTIN W 584.9 09/11/2017 YASIR MARTIN D50.0 IRON DEFICIENCY ANEMIA SECONDARY TO BLOOD LOSS (CHRONIC) 09/11/2017 NEERAJ MARTINHEL W D72.829 ELEVATED WHITE BLOOD CELL COUNT, UNSPECIFIED 09/11/2017 MARTINNEERAJYASIR W E86.0 DEHYDRATION 09/11/2017 NEERAJ MARTINHEL W J90 PLEURAL EFFUSION, NOT ELSEWHERE CLASSIFIED 09/11/2017 MARTINNEERAJYASIR W K91.89 OTH POSTPROCEDURAL COMPLICATIONS AND DISORDERS OF DGSTV SYS 09/11/2017 YASIR MARTIN W N17.9 ACUTE KIDNEY FAILURE, UNSPECIFIED 09/11/2017 YASIR MARTIN W 276.51 09/11/2017 YASIR MARTIN W 280.0 09/11/2017 YASIR MARTIN W 288.60 LEUKOCYTOSIS, UNSPECIFIED 09/11/2017 YASIR MARTIN W 511.1 PLEURISY WITH EFFUSION, WITH MENTION OF A BACTERIAL CAUSE OTHER THAN TUBERCULOSIS 09/11/2017 YASIR MARTIN W 564.4 OTHER POSTOPERATIVE FUNCTIONAL DISORDERS 09/11/2017 YASIR MARTIN W 584.9 09/11/2017 YASIR MARTIN W D50.0 IRON DEFICIENCY ANEMIA SECONDARY TO BLOOD LOSS (CHRONIC) 09/11/2017 MARIO YASIR W D72.829 ELEVATED WHITE BLOOD CELL COUNT, UNSPECIFIED 09/11/2017 YASIR MARTIN W E86.0 DEHYDRATION 09/11/2017 MARTINYASIR LACKEY W J90 PLEURAL EFFUSION, NOT ELSEWHERE CLASSIFIED 09/11/2017 YASIR MARTIN W K91.89 OTH POSTPROCEDURAL COMPLICATIONS AND DISORDERS OF DGSTV SYS 09/11/2017 YASIR MARTIN W N17.9 ACUTE KIDNEY FAILURE, UNSPECIFIED 09/11/2017 YASIR MARTIN W 276.51 09/11/2017 YASIR MARTIN W 276.8 09/11/2017 YASIR MARTIN W 280.0 09/11/2017 YASIR MARTIN W 285.9 09/11/2017 YASIR MARTIN W 288.60 LEUKOCYTOSIS, UNSPECIFIED 09/11/2017 YASIR MARTIN W 511.1 PLEURISY WITH EFFUSION, WITH MENTION OF A BACTERIAL CAUSE OTHER THAN TUBERCULOSIS 09/11/2017 YASIR MARTIN W 560.1 09/11/2017 YASIR MARTIN A 564.4 OTHER POSTOPERATIVE FUNCTIONAL DISORDERS 09/11/2017 YASIR MARTIN 584.9 09/11/2017 YASIR MARTIN 787.7 09/11/2017 YASIR MARTIN 799.02 09/11/2017 YASIR MARTIN D50.0 IRON DEFICIENCY ANEMIA SECONDARY TO BLOOD LOSS (CHRONIC) 09/11/2017 YASIR MARTIN D64.9 ANEMIA, UNSPECIFIED 09/11/2017 YASIR MARTIN D72.829 ELEVATED WHITE BLOOD CELL COUNT, UNSPECIFIED 09/11/2017 YASIR MARTIN W E86.0 DEHYDRATION 09/11/2017 YASIR MARTIN E87.6 HYPOKALEMIA 09/11/2017 YASIR MARTIN J90 PLEURAL EFFUSION, NOT ELSEWHERE CLASSIFIED 09/11/2017 YASIR MARTIN K56.7 09/11/2017 YASIR MARTIN A K91.89 OTH POSTPROCEDURAL COMPLICATIONS AND DISORDERS OF DGSTV SYS 09/11/2017 YASIR MARTIN N17.9 ACUTE KIDNEY FAILURE, UNSPECIFIED 09/11/2017 YASIR MARTIN R09.02 HYPOXEMIA 09/11/2017 YASIR MARTIN W R19.5 OTHER FECAL ABNORMALITIES 09/19/2017 A 997.49 OTH ER DIGESTIVE SYSTEM COMPLICATIONS 09/19/2017 A K91.3 POST PROCEDURAL INTESTINAL OBSTRUCTION 02/19/2018 YASIR MARTIN V76.47 SCREENING FOR MALIGNANT NEOPLASMS OF THE VAGINA 02/19/2018 YASIR MARTIN Z12.72 ENCOUNTER FOR SCREENING FOR MALIGNANT NEOPLASM OF VAGINA 02/19/2018 YASIR MARTIN V76.47 SCREENING FOR MALIGNANT NEOPLASMS OF THE VAGINA 02/19/2018 YASIR MARTIN Z12.72 ENCOUNTER FOR SCREENING FOR MALIGNANT NEOPLASM OF VAGINA 02/19/2018 W V76.47 SCR EENING FOR MALIGNANT NEOPLASMS OF THE VAGINA 02/19/2018 W Z12.72 ENC OUNTER FOR SCREENING FOR MALIGNANT NEOPLASM OF VAGINA 02/19/2018 YASIR MARTIN V76.47 SCREENING FOR MALIGNANT NEOPLASMS OF THE VAGINA 02/19/2018 YASIR MARTIN Z12.72 ENCOUNTER FOR SCREENING FOR MALIGNANT NEOPLASM OF VAGINA 02/21/2018 YASIR MARTIN MD Ot R92.8 OTH ABN AND INCONCLUSIVE FINDINGS ON DX 02/21/2018 YASIR MARTIN MD Ot Z12.31 ENCNTR SCREEN MAMMOGRAM FOR MALIGNANT NE 03/02/2018 YASIR MARTIN MD Ot R92.8 OTH ABN AND INCONCLUSIVE FINDINGS ON DX 03/02/2018 YASIR MARTIN MD Ot Z12.31 ENCNTR SCREEN MAMMOGRAM FOR MALIGNANT NE 03/07/2018 YASIR MARTIN MD L Ot N60.02 SOLITARY CYST OF LEFT BREAST 03/07/2018 YASIR MARTIN MD L Ot R92.2 INCONCLUSIVE MAMMOGRAM 03/11/2018 YASIR MARTIN MD L Ot N60.02 SOLITARY CYST OF LEFT BREAST 03/11/2018 YASIR MARTIN MD L Ot R92.2 INCONCLUSIVE MAMMOGRAM 03/16/2018 YASIR MARTIN MD L Ot N60.02 SOLITARY CYST OF LEFT BREAST 03/16/2018 YASIR MARTIN MD L Ot R92.2 INCONCLUSIVE MAMMOGRAM 06/20/2018 YASIR MARTIN MD Ot 793.82 INCONCLUSIVE MAMMOGRAM 06/20/2018 YASIR MARTIN MD L Ot V76.12 OTH SCREEN MAMMO-MALIGN NEOPLASM OF ALEKS 06/20/2018 YASIR MARTIN MD L Ot V76.12 OTH SCREEN MAMMO-MALIGN NEOPLASM OF ALEKS 06/20/2018 YASIR MARTIN MD L Ot 610.0 SOLITARY CYST OF BREAST 06/20/2018 YASIR MARTIN MD L Ot N6 3 UNSPECIFIED LUMP IN BREAST 06/20/2018 YASIR MARTIN MD L Ot Z12.31 ENCNTR SCREEN MAMMOGRAM FOR MALIGNANT NE 06/20/2018 YASIR MARTIN MD L Ot 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 06/20/2018 YASIR MARTIN MD L Ot N60.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 06/20/2018 YASIR MARTIN MD Ot R92.8 OTH ABN AND INCONCLUSIVE FINDINGS ON DX 06/20/2018 YASIR MARTIN MD L Ot Z12.31 ENCNTR SCREEN MAMMOGRAM FOR MALIGNANT NE 06/20/2018 YASIR MARTIN MD Ot N60.02 SOLITARY CYST OF LEFT BREAST 06/20/2018 YASIR MARTIN MD L Ot R92.2 INCONCLUSIVE MAMMOGRAM 06/20/2018 MARTIN MD, YASIR L Ot 793.82 INCONCLUSIVE MAMMOGRAM 06/20/2018 MARIO RAMESH, YASIR L Ot V76.12 OTH SCREEN MAMMO-MALIGN NEOPLASM OF ALEKS 06/20/2018 MARIO RAMESH, YASIR L Ot V76.12 OTH SCREEN MAMMO-MALIGN NEOPLASM OF [place]LEKS 06/20/2018 MARIO RAMESH, YASIR L Ot 610.0 SOLITARY CYST OF BREAST 06/20/2018 YASIR MARTIN MD L Ot N6 3 UNSPECIFIED LUMP IN BREAST 06/20/2018 YASIR MARTIN MD L Ot Z12.31 ENCNTR SCREEN MAMMOGRAM FOR MALIGNANT NE 06/20/2018 YASIR MARTIN MD L Ot 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 06/20/2018 YASIR MARTIN MD L Ot N60.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 06/20/2018 YASIR MARTIN MD L Ot R92.8 OTH ABN AND INCONCLUSIVE FINDINGS ON DX 06/20/2018 YASIR MARTIN MD Ot Z12.31 ENCNTR SCREEN MAMMOGRAM FOR MALIGNANT NE 06/20/2018 YASIR MARTIN MD L Ot N60.02 SOLITARY CYST OF LEFT BREAST 06/20/2018 YASIR MARTIN MD L Ot R92.2 INCONCLUSIVE MAMMOGRAM 06/20/2018 MARIO RAMESH, YASIR L Ot 793.82 INCONCLUSIVE MAMMOGRAM 06/20/2018 MARIO RAMESH, YASIR L Ot V76.12 OTH SCREEN MAMMO-MALIGN NEOPLASM OF ALEKS 06/20/2018 YASIR MARTIN MD L Ot V76.12 OTH SCREEN MAMMO-MALIGN NEOPLASM OF ALEKS 06/20/2018 MARIO RAMESH, YASIR L Ot 610.0 SOLITARY CYST OF BREAST 06/20/2018 YASIR MARTIN MD L Ot N6 3 UNSPECIFIED LUMP IN BREAST 06/20/2018 YASIR MARTIN MD L Ot Z12.31 ENCNTR SCREEN MAMMOGRAM FOR MALIGNANT NE 06/20/2018 YASIR MARTIN MD L Ot 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 06/20/2018 YASIR MARTIN MD L Ot N60.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 06/20/2018 YASIR MARTIN MD L Ot R92.8 OTH ABN AND INCONCLUSIVE FINDINGS ON DX 06/20/2018 YASIR MARTIN MD L Ot Z12.31 ENCNTR SCREEN MAMMOGRAM FOR MALIGNANT NE 06/20/2018 MARIO RAMESH, YASIR L Ot N60.02 SOLITARY CYST OF LEFT BREAST 06/20/2018 MARIO RAMESH, YASIR L Ot R92.2 INCONCLUSIVE MAMMOGRAM 07/09/2018 YASIR MARTIN MD L Ot 793.82 INCONCLUSIVE MAMMOGRAM 07/09/2018 YASIR MARTIN MD L Ot V76.12 OTH SCREEN MAMMO-MALIGN NEOPLASM OF [place] 07/09/2018 YASIR MARTIN MD L Ot V76.12 OTH SCREEN MAMMO-MALIGN NEOPLASM OF ALEKS 07/09/2018 YASIR MARTIN MD L Ot 610.0 SOLITARY CYST OF BREAST 07/09/2018 YASIR MARTIN MD Ot N6 3 UNSPECIFIED LUMP IN BREAST 07/09/2018 YASIR MARTIN MD L Ot Z12.31 ENCNTR SCREEN MAMMOGRAM FOR MALIGNANT NE 07/09/2018 YASIR MARTIN MD L Ot 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 07/09/2018 YASIR MARTIN MD L Ot N60.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 07/09/2018 MARIO RAMESH, YASIR L Ot R92.8 OTH ABN AND INCONCLUSIVE FINDINGS ON DX 07/09/2018 YASIR MARTIN MD L Ot Z12.31 ENCNTR SCREEN MAMMOGRAM FOR MALIGNANT NE 07/09/2018 YASIR MARTIN MD L Ot N60.02 SOLITARY CYST OF LEFT BREAST 07/09/2018 YASIR MARTIN MD L Ot R92.2 INCONCLUSIVE MAMMOGRAM 07/10/2018 YASIR MARTIN MD L Ot 793.82 INCONCLUSIVE MAMMOGRAM 07/10/2018 YASIR MARTIN MD L Ot V76.12 OTH SCREEN MAMMO-MALIGN NEOPLASM OF ALEKS 07/10/2018 YASIR MARTIN MD L Ot V76.12 OTH SCREEN MAMMO-MALIGN NEOPLASM OF ALEKS 07/10/2018 YASIR MARTIN MD L Ot 610.0 SOLITARY CYST OF BREAST 07/10/2018 YASIR MARTIN MD L Ot N6 3 UNSPECIFIED LUMP IN BREAST 07/10/2018 YASIR MARTIN MD L Ot Z12.31 ENCNTR SCREEN MAMMOGRAM FOR MALIGNANT NE 07/10/2018 YASIR MARTIN MD L Ot 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 07/10/2018 MARIO RAMESH, YASIR L Ot N60.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 07/10/2018 MARIO RAMESH, YASIR L Ot R92.8 OTH ABN AND INCONCLUSIVE FINDINGS ON DX 07/10/2018 YASIR MARTIN MD L Ot Z12.31 ENCNTR SCREEN MAMMOGRAM FOR MALIGNANT NE 07/10/2018 YASIR MARTIN MD L Ot N60.02 SOLITARY CYST OF LEFT BREAST 07/10/2018 MARIO RAMESH, YASIR L Ot R92.2 INCONCLUSIVE MAMMOGRAM 07/10/2018 MARIO RAMESH, YASIR L Ot 793.82 INCONCLUSIVE MAMMOGRAM 07/10/2018 MARIO RAMESH, YASIR L Ot V76.12 OTH SCREEN MAMMO-MALIGN NEOPLASM OF ALEKS 07/10/2018 YASIR MARTIN MD L Ot V76.12 OTH SCREEN MAMMO-MALIGN NEOPLASM OF ALEKS 07/10/2018 NEERAJ MARTIN MDHEL L Ot 610.0 SOLITARY CYST OF BREAST 07/10/2018 MARIO RAMESH, YASIR L Ot N6 3 UNSPECIFIED LUMP IN BREAST 07/10/2018 YASIR MARTIN MD L Ot Z12.31 ENCNTR SCREEN MAMMOGRAM FOR MALIGNANT NE 07/10/2018 YASIR MARTIN MD L Ot 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 07/10/2018 MARIO RAMESH, YASIR L Ot N60.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 07/10/2018 MARIO RAMESH YASIR L Ot R92.8 OTH ABN AND INCONCLUSIVE FINDINGS ON DX 07/10/2018 YASIR MARTIN MD L Ot Z12.31 ENCNTR SCREEN MAMMOGRAM FOR MALIGNANT NE 07/10/2018 YASIR MARTIN MD L Ot N60.02 SOLITARY CYST OF LEFT BREAST 07/10/2018 MARIO RAMESH, YASIR L Ot R92.2 INCONCLUSIVE MAMMOGRAM 07/11/2018 NGUYỄN LEUNG MD Ot G47.10 HYPERSOMNIA, UNSPECIFIED 07/11/2018 NGUYỄN LEUNG MD Ot G47.33 OBSTRUCTIVE SLEEP APNEA (ADULT) (PEDIATR 07/11/2018 XOCHITL RAMESH, NGUYỄN Bose Ot R06.83 SNORING 07/11/2018 NGUYỄN LEUNG MD Ot G47.10 HYPERSOMNIA, UNSPECIFIED 07/11/2018 NGUYỄN LEUNG MD Ot G47.33 OBSTRUCTIVE SLEEP APNEA (ADULT) (PEDIATR 07/11/2018 NGUYỄN LEUNG MD Ot R06.83 SNORING 07/25/2018 W 307.47 OTH ER DYSFUNCTIONS OF SLEEP STAGES OR AROUSAL FROM SLEEP 07/25/2018 W 715.16 OST EOARTHROSIS, LOCALIZED, PRIMARY, INVOLVING LOWER LEG 07/25/2018 W F43.12 POS T-TRAUMATIC STRESS DISORDER, CHRONIC 07/25/2018 W M17.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, RIGHT KNEE 08/28/2018 NGUYỄN LEUNG MD Ot G47.33 OBSTRUCTIVE SLEEP APNEA (ADULT) (PEDIATR 11/20/2018 W 368.16 PSY CHOPHYSICAL VISUAL DISTURBANCES 11/20/2018 W R44.1 VISU AL HALLUCINATIONS 03/06/2019 YASIR MARTIN MD Ot V76.12 OTH SCREEN MAMMO-MALIGN NEOPLASM OF ALEKS 03/06/2019 YASIR MARTIN MD Ot 610.0 SOLITARY CYST OF BREAST 03/06/2019 YASIR MARTIN MD Ot N6 3 UNSPECIFIED LUMP IN BREAST 03/06/2019 YASIR MARTIN MD Ot Z12.31 ENCNTR SCREEN MAMMOGRAM FOR MALIGNANT NE 03/06/2019 YASIR MARTIN MD Ot 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 03/06/2019 YASIR MARTIN MD Ot N60.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 03/06/2019 YASIR MARTIN MD Ot R92.8 OTH ABN AND INCONCLUSIVE FINDINGS ON DX 03/06/2019 YASIR MARTIN MD Ot Z12.31 ENCNTR SCREEN MAMMOGRAM FOR MALIGNANT NE 03/06/2019 YASIR MARTIN MD Ot N60.02 SOLITARY CYST OF LEFT BREAST 03/06/2019 YASIR MARTIN MD Ot R92.2 INCONCLUSIVE MAMMOGRAM 03/19/2019 YASIR MARTIN MD Ot C50.919 MALIGNANT NEOPLASM OF UNSP SITE OF UNSPE 03/19/2019 YASIR MARTIN MD Ot Z12.31 ENCNTR SCREEN MAMMOGRAM FOR MALIGNANT NE Procedures There is no data. Results Test Result Range BMP - 07/26/16 14:27 Anion Gap 17 6-14 BUN 11 mg/dL 5-25 Calcium 10.0 mg/dL 8.3-10.4 Chloride 106 mmol/L 95-114 CO2 24 mEq/L 22-33 Creat 1.09 mg/dL 0.50-1.50 eGFR 54 mL/min/1.73m2 >59 Glucose 109 mg/dL 70-110 Osmo 295 280-295 Potassium 4.1 mmol/L 3.5-5.3 Sodium 143 mmol/L 134-148 Test-Serum - 08/04/16 08:53 Preg Test-S Negative Negative Surgical Pathology - 08/04/16 11:38 Surg Path Sent to [facility] Complete blood count (CBC) with automate d white blood cell (WBC) differential - 12/02/16 10:37 Blood leukocytes automated count (number/volume) 6.7 10*3/uL 4.3-11.0 Blood erythrocytes automated count (number/volume) 4.21 10*6/uL 4.35-5.85 Venous blood hemoglobin measurement (mass/volume) 11.3 g/dL 11.5-16.0 Blood hematocrit (volume fraction) 36 % 35-52 Automated erythrocyte mean corpuscular volume 85 [ foz_us] 80-99 Automated erythrocyte mean corpuscular h emoglobin (mass per erythrocyte) 27 pg 25-34 Automated erythrocyte mean corpuscular h emoglobin concentration measurement (mass/volume) 32 g/dL 32-36 Automated erythrocyte distribution width ratio 15. 4 % 10.0- 14.5 Automated blood platelet count (count/volume) 407 10*3/uL 130-400 Automated blood platelet mean volume measurement 10.0 [foz_us] 7.4-10.4 Automated blood neutrophils/100 leukocytes 66 % 42-75 Automated blood lymphocytes/100 leukocytes 23 % 12-44 Blood monocytes/100 leukocytes 9 % 0-12 Automated blood eosinophils/100 leukocytes 2 % 0-10 Automated blood basophils/100 leukocytes 1 % 0-10 Blood neutrophils automated count (number/volume) 4.4 10*3 1.8-7.8 Blood lymphocytes automated count (number/volume) 1.6 10*3 1.0-4.0 Blood monocytes automated count (number/volume) 0. 6 10*3 0.0-1.0 Automated eosinophil count 0.1 10*3/uL 0 .0-0.3 Automated blood basophil count (count/volume) 0.0 10*3/uL 0.0-0.1 PT panel in platelet poor plasma by coag ulation assay - 12/02/16 10:37 Prothrombin time (PT) in platelet poor plasma by coagu lation assay 12.7 s 12.2-14.7 INR in platelet poor plasma or blood by coagulation as say 1.0 0.8-1.4 Activated partial thromboplastin time (a PTT) in platelet poor plasma bycoagulation assay - 12/02/16 10:37 Activated partial thromboplastin time (a PTT) in platelet poor plasma bycoagulation assay 28 s 24-35 Fibrin D-dimer FEU measurement in platel et poor plasma (mass/volume) - 12/02/16 10:37 Fibrin D-dimer FEU measurement in platelet poor plasma (mass/volume) 0.32 ug/mL 0.00-0.49 Comprehensive metabolic panel - 12/02/16 10:37 Serum or plasma sodium measurement (moles/volume) 140 mmol/L 135-145 Serum or plasma potassium measurement (moles/volume) 3.9 mmol/L 3.6-5.0 Serum or plasma chloride measurement (moles/volume) 106 mmol/L 98-107 Carbon dioxide 22 mmol/L 21-32 Serum or plasma anion gap determination (moles/volume) 12 mmol/L 5-14 Serum or plasma urea nitrogen measurement (mass/volume ) 10 mg/dL 7-18 Serum or plasma creatinine measurement (mass/volume) 1.18 mg/dL 0.60-1.30 Serum or plasma urea nitrogen/creatinine mass ratio 8 NRG Serum or plasma creatinine measurement w ith calculation of estimated glomerular filtration rate 49 NRG Serum or plasma glucose measurement (mass/volume) 118 mg/dL 70-105 Serum or plasma calcium measurement (mass/volume) 10.4 mg/dL 8.5-10.1 Serum or plasma total bilirubin measurement (mass/volu me) 0.4 mg/dL 0.1-1.0 Serum or plasma alkaline phosphatase guillermo surement (enzymatic activity/volume) 138 U/L 40-136 Serum or plasma aspartate aminotransfera se measurement (enzymatic activity/volume) 14 U/L 5-34 Serum or plasma alanine aminotransferase measurement (enzymatic activity/volume) 15 U/L 0-55 Serum or plasma protein measurement (mass/volume) 7.8 g/dL 6.4-8.2 Serum or plasma albumin measurement (mass/volume) 4.0 g/dL 3.2-4.5 Magnesium - 12/02/16 10:37 Magnesium 1.8 mg/dL 1.8-2.4 Myoglobin, serum - 12/02/16 10:37 Myoglobin, serum 69.8 ng/mL 10.0-92.0 Serum or plasma troponin i.cardiac measu rement (mass/volume) - 12/02/16 10:37 Serum or plasma troponin i.cardiac measurement (mass/v olume) < ng/mL <0.30 Myoglobin, serum - 12/02/16 10:37 Myoglobin, serum 69.8 ng/mL 10.0-92.0 Serum or plasma lithium measurement (mol es/volume) - 12/02/16 10:37 BNP level 51.5 pg/mL <100.0 Protime - 08/24/17 13:02 INR 1.1 1.0-4.0 Protime 12.4 Sec 9.9-12.8 MRSA Screen - 08/24/17 13:02 FINAL CULTURE RESULTS MRSA Negative Nasal Culture MEDIA PLATED Setup at 13:28 on 08/24/2017 EKG - 08/24/17 13:04 EKG Complete TYPE/SCREEN - 08/29/17 09:45 ABO/RH O NEGATIVE ANTIBODY SCREEN NEGATIVE Urine Culture - 08/29/17 11:23 PRELIM CULTURE RESULTS <10,000 Mixed Carmen P robable Skin Contaminant FINAL CULTURE RESULTS <10,000 Mixed Carmen X0 [id number] Skin Contaminant [id number] Further Workup done MEDIA PLATED Setup at 13:12 on 08/29/2017 CULTURE SOURCE [id number]\ BMP - 08/30/17 07:06 Anion Gap 12 6-14 BUN 10 mg/dL 5-25 Calcium 9.0 mg/dL 8.3-10.4 Chloride 105 mmol/L 95-114 CO2 28 mEq/L 22-33 Creat 0.96 mg/dL 0.50-1.50 eGFR 62 mL/min/1.73m2 >59 Glucose 98 mg/dL 70-110 Osmo 290 280-295 Potassium 3.9 mmol/L 3.5-5.3 Sodium 141 mmol/L 134-148 Comprehensive Metabolic Panel - 09/01/17 19:15 Albumin 3.4 g/dL 3.6-5.1 ALP 276 U/L 35-130 ALT 96 U/L 6-45 Anion Gap 20 6-14 AST 118 U/L 2-40 BUN 17 mg/dL 5-25 Calcium 9.9 mg/dL 8.3-10.4 Chloride 103 mmol/L 95-114 CO2 22 mEq/L 22-33 Creat 1.75 mg/dL 0.50-1.50 eGFR 31 mL/min/1.73m2 >59 Globulin 3.6 g/dL 2.3-3.5 Glucose 155 mg/dL 70-110 Osmo 297 280-295 Potassium 3.4 mmol/L 3.5-5.3 Sodium 142 mmol/L 134-148 TBil 0.8 mg/dL 0.2-1.2 TP 7.0 g/dL 6.0-8.3 Blood Culture - 09/01/17 19:15 PRELIM CULTURE RESULTS Blood Culture Negativ e, No Growth Day 1 FINAL CULTURE RESULTS Blood Culture Negative , No Growth Day 5 MEDIA PLATED Setup at 20:54 on 09/01/2017X [id number] Culture Media Position A12 CULTURE SOURCE drawn @ Left arm; IV start Blood Culture - 09/01/17 19:20 FINAL CULTURE RESULTS Blood Culture Negative , No Growth Day 5 MEDIA PLATED Setup at 20:54 on 09/01/2017X [id number] Culture Media Position A11 CULTURE SOURCE drawn @ Right Hand Arterial Blood Gas - 09/01/17 21:10 Base -4.00 mmol/L 1.80-4.20 HCO3 21 mmol/L 20-31 O2 Sat 91 ROOM AIR % 95-100 pCO2 40 mm/Hg 35-45 pH 7.34 7.35-7.45 PO2 64 mm/Hg 80-95 Urine Culture - 09/01/17 21:35 PRELIM CULTURE RESULTS No Growth 24 hours FINAL CULTURE RESULTS No Growth 48 hours MEDIA PLATED Setup at 21:40 on 09/01/2017 CULTURE SOURCE cath urine Urinalysis - 09/01/17 21:40 Icotest N/A Negative Urine Crystals Amorphous material: moderate/HPF Urine Volume Urine Volume Sufficient (10mL) Urine-Appearance Turbid Clear Urine-Bacteria 2+ Urine-Bilirubin Negative Negative Urine-Blood Trace-intact Negative Urine-Color Yellow Colorless-Lt. [place] ow Urine-Epithelial Cells 0-5/HPF Urine-Glucose Negative Negative Urine-Ketones Trace Negative Urine-Leukocytes 1+ Negative Urine-Nitrite Negative Negative Urine-Other Culture to follow Urine-pH 5.0 5-8.5 Urine-Protein 1+ Negative Urine-RBC 2-5/HPF Urine-Specific [place] <1.005 1.000-1 .030 Urine-WBC TNTC Urobilinogen 0.2 0.2-1.0 Magnesium - 09/01/17 23:30 Mg++ 1.2 mg/dL 1.6-2.6 Magnesium - 09/02/17 05:25 Mg++ 1.7 mg/dL 1.6-2.6 XM (2) [facility] - 09/02/17 08:28 CROSSMATCH COMPATIBLE X 2 Hct 27.1 % 36.0-46.0 Hgb 8.3 g/dL 13.0-15.0 BNP - 09/03/17 06:44 BNP 461.80 pg/ml 0.00-100.00 IFOBT Occult Blood - 09/03/17 09:31 IFOBT Occult Blood POSITIVE Negative Leukoreduced Packed RBC Unit Checkout - 09/03/17 13:16 [facility] Checkout Checked Out. [facility] - 09/03/17 18:00 Anion Gap 18 6-14 BUN 11 mg/dL 5-25 Calcium 9.0 mg/dL 8.3-10.4 Chloride 106 mmol/L 95-114 CO2 25 mEq/L 22-33 Creat 1.15 mg/dL 0.50-1.50 eGFR 51 mL/min/1.73m2 >59 Glucose 99 mg/dL 70-110 Osmo 301 280-295 Potassium 2.9 mmol/L 3.5-5.3 Sodium 146 mmol/L 134-148 [facility] - 09/04/17 05:45 Anion Gap 16 6-14 BUN 12 mg/dL 5-25 Calcium 8.9 mg/dL 8.3-10.4 Chloride 106 mmol/L 95-114 CO2 26 mEq/L 22-33 Creat 1.25 mg/dL 0.50-1.50 eGFR 46 mL/min/1.73m2 >59 Glucose 96 mg/dL 70-110 Osmo 299 280-295 Potassium 3.2 mmol/L 3.5-5.3 Sodium 145 mmol/L 134-148 [facility] - 04/16/18 12:49 BNP 628.10 pg/ml 0.00-100.00 [facility] - 09/05/17 04:58 Anion Gap 14 6-14 BUN 12 mg/dL 5-25 Calcium 8.4 mg/dL 8.3-10.4 Chloride 110 mmol/L 95-114 CO2 25 mEq/L 22-33 Creat 1.15 mg/dL 0.50-1.50 eGFR 51 mL/min/1.73m2 >59 Glucose 112 mg/dL 70-110 Osmo 300 280-295 Potassium 3.6 mmol/L 3.5-5.3 Sodium 145 mmol/L 134-148 Comprehensive Metabolic Panel - 09/06/17 07:20 Albumin 2.9 g/dL 3.6-5.1 ALP 100 U/L 35-130 ALT 15 U/L 6-45 Anion Gap 12 6-14 AST 8 U/L 2-40 BUN 19 mg/dL 5-25 Calcium 8.6 mg/dL 8.3-10.4 Chloride 108 mmol/L 95-114 CO2 24 mEq/L 22-33 Creat 0.91 mg/dL 0.50-1.50 eGFR 66 mL/min/1.73m2 >59 Globulin 2.0 g/dL 2.3-3.5 Glucose 117 mg/dL 70-110 Osmo 294 280-295 Potassium 3.4 mmol/L 3.5-5.3 Sodium 141 mmol/L 134-148 TBil 0.3 mg/dL 0.2-1.2 TP 4.9 g/dL 6.0-8.3 [facility] - 09/07/17 09:48 Anion Gap 16 6-14 BUN 31 mg/dL 5-25 Calcium 9.3 mg/dL 8.3-10.4 Chloride 111 mmol/L 95-114 CO2 19 mEq/L 22-33 Creat 0.89 mg/dL 0.50-1.50 eGFR 68 mL/min/1.73m2 >59 Glucose 132 mg/dL 70-110 Osmo 301 280-295 Potassium 3.5 mmol/L 3.5-5.3 Sodium 142 mmol/L 134-148 Comprehensive Metabolic Panel - 09/08/17 06:30 Albumin 3.1 g/dL 3.6-5.1 ALP 111 U/L 35-130 ALT 14 U/L 6-45 Anion Gap 15 6-14 AST 15 U/L 2-40 BUN 28 mg/dL 5-25 Calcium 8.8 mg/dL 8.3-10.4 Chloride 110 mmol/L 95-114 CO2 21 mEq/L 22-33 Creat 0.86 mg/dL 0.50-1.50 eGFR 71 mL/min/1.73m2 >59 Globulin 2.2 g/dL 2.3-3.5 Glucose 123 mg/dL 70-110 Osmo 299 280-295 Potassium 3.7 mmol/L 3.5-5.3 Sodium 142 mmol/L 134-148 TBil 0.3 mg/dL 0.2-1.2 TP 5.3 g/dL 6.0-8.3 IGP, Aptima HPV - 02/19/18 12:16 HPV Aptima Negative Negative DIAGNOSIS: Comment Specimen adequacy: Comment Clinician provided ICD10: Comment Performed by: Comment QC reviewed by: Comment . . Note: Comment Test Methodology: Comment IGP, Aptima HPV, rfx 16/18,45 - 09/30/19 10:00 HPV Aptima Negative Negative DIAGNOSIS: Comment Specimen adequacy: Comment Clinician provided ICD10: Comment Performed by: Comment QC reviewed by: Comment . . Note: Comment Test Methodology: Comment Pap with hr HPV, rfx 16T18 - 09/30/19 10 :00 Pap Smear NEGATIVE FOR INTRAEPITHELIAL LESION OR MALIGNANCY..brTHIS SPECIMEN WAS RESCREENED PART OF OUR [employer]IL[employer] PROGRAM. SPECIMEN ADEQUACY: SATISFACTORY FOR EVALUATI ON. ENDOCERVICAL AND/OR SQUAMOUS METAPLASTIC.brCELLS (ENDOCERVICAL COMPONENT) ARE PRESENT. PERFORMED BY: SILVIA HATFIELD, ATTENDANT CHILD ACTIVITY ( CP) QC REVIEWED BY: BRENDA HESTER ATTENDANT CHILD ACTIVITY ([facility] [place]) . . NOTE: THE PAP SMEAR IS A SCREENING TEST DESIGNED TO AID IN THE DETECTION OF.brPREMALIGNANT AND MALIGNANT CONDITIONS OF THE UTERINE CERVIX. IT IS NOT A.brDIAGNOSTIC PROCEDURE AND SHOULD NOT BE USED THE SOLE MEANS OF DETECTING.brCERVICAL CANCER. BOTH FALSE-POSITIVE AND FALSE-NEGATIVE REPORTS DO OCCUR. TEST METHODOLOGY: THIS LIQUID BASED SUREPATH (R) PAP TEST WAS SCREENED WITH THE.brASSISTANCE OF AN IMAGE GUIDED SYSTEM. HPV APTIMA NEGATIVE NEGATIVE CLINICIAN PROVIDED ICD10: Z12.72 Coronavirus SARS-CoV-2 SO 2019 - 05/29/2 0 12:55 Coronavirus Ab [Units/volume] in Serum Negative Negative Encounters ACCT No. Visit Date/Time Discharge Status Pt. Type Provider Facility Loc./Unit Complaint [id number] 10/08/2019 23:06:00 Document Registration [id number] 10/18/2019 08:08:00 14:31:00 DIS Outpatient NGUYỄN CERVANTES MD [facility] PREOP ROTATOR CUFF TEAR [id number] 03/06/2019 08:02:00 23:59:59 CLS Outpatient YASIR MARTIN MD [facility] RAD SCREENING [id number] 08/27/2018 19:44:00 07:37:00 DIS Outpatient NGUYỄN LEUNG MD [facility] SLEEP LIDIA [id number] 07/10/2018 20:48:00 07:05:00 DIS Outpatient NGUYỄN LEUNG MD [facility] SLEEP LIDIA [id number] 03/05/2018 13:17:00 018 23:59:59 CLS Outpatient YASIR MARTIN MD [facility] RAD ABNORMAL MAMMO [id number] 02/20/2018 09:31:00 018 23:59:59 CLS Outpatient YASIR MARTIN MD [facility] RAD SCREENING [id number] 12/08/2017 15:14:00 018 23:59:59 CLS Preadmit JEREL CH [facility] RAD YEARLY SCREENING [id number] 12/02/2016 10:25:00 017 14:36:00 DIS Emergency MARY COVARRUBIAS MD [facility] ER SOB [id number] 11/17/2016 13:20:00 017 23:59:59 CLS Outpatient YASIR MARTIN MD [facility] RAD ABNORMAL MAMMO [id number] 11/08/2016 11:17:00 017 23:59:59 CLS Outpatient YASIR MARTIN MD [facility] RAD SCREENING [id number] 03/10/2014 14:58:00 014 23:59:59 CLS Outpatient YASIR MARTIN MD [facility] RAD ABNORMAL MAMMO [id number] 02/26/2014 15:35:00 014 23:59:59 CLS Outpatient YASIR MARTIN MD [facility] RAD ROUTINE [id number] 02/07/2013 14:45:00 013 23:59:59 CLS Outpatient YASIR MARTIN MD [facility] RAD SCREENING [id number] 10/23/2019 10:15:00 P JASE CERVANTES MD, NGUYỄN Bose [facility] RIGHT ROTATOR CUFF TEAR [id number] 06/25/2012 09:57:00 Document Registration [id number] 02/02/2012 10:24:00 Document Registration [id number] 12/14/2011 10:58:00 Document Registration [id number] 10/25/2011 10:54:00 Document Registration [id number] 08/29/2017 08:10:00 Document Registration [id number] 10/05/2019 00:00:00 10/05/2019 23:59 :00 DIS Outpatient YASIR MARTIN [id number] 09/30/2019 13:14:00 09/30/2019 23:59 :00 DIS Outpatient YASIR MARTIN [id number] 09/30/2019 00:00:00 09/30/2019 23:59 :00 DIS Outpatient YASIR MARTIN [id number] 09/10/2019 14:28:00 09/10/2019 23:59 :00 DIS Outpatient NATALI LOPEZ [id number] 08/28/2019 13:07:00 08/28/2019 23:59 :00 DIS Outpatient YASIR MARTIN [id number] 05/02/2019 15:03:00 05/02/2019 23:59 :00 DIS Outpatient NATALI LOPEZ [id number] 02/20/2019 10:00:00 02/20/2019 23:59: 00 DIS Outpatient YASIR MARTIN [id number] 02/19/2018 12:15:00 02/19/2018 23:59: 00 DIS Outpatient YASIR MARTIN [id number] 09/01/2017 18:50:00 09/11/2017 10:20: 00 DIS Inpatient YASIR MARTIN [facility] [id number] 08/29/2017 08:10:00 08/30/2017 13:00: 00 DIS Inpatient Shreya Carrillo [id number] 08/24/2017 12:06:00 08/24/2017 23:59: 00 DIS Outpatient Samy Carrillosony [id number] 02/16/2017 08:39:00 02/16/2017 23:59: 00 DIS Outpatient VOGT JORY [id number] 11/17/2016 16:23:00 11/17/2016 23:59: 00 DIS Outpatient TORIE JORY [id number] 09/28/2016 10:12:00 09/28/2016 23:59: 00 DIS Outpatient YASIR MARTIN [id number] 08/04/2016 00:00:00 08/04/2016 12:25: 00 DIS Outpatient Renato Carrillocamille [id number] 07/29/2016 00:00:00 07/29/2016 00:00: 00 CAN Outpatient Renato Carrillocamille [id number] 07/26/2016 14:06:00 07/26/2016 23:59: 00 DIS Outpatient Samy Carrillosony [id number] 11/20/2018 08:00:00 Document Registration [id number] 07/25/2018 16:30:00 Document Registration [id number] 02/19/2018 10:00:00 Document Registration [id number] 09/19/2017 10:00:00 Document Registration [id number] 02/15/2017 10:50:00 Document Registration [id number] 08/04/2016 09:51:20 Document Registration [id number] 02/21/2018 23:07:00 Document Registration [id number] 10/21/2019 15:00:00 ACT Outpatient LUCRECIA ZACHERY [facility] [id number] 01/14/2013 08:00:00 01/14/2013 23:59: 59 CLS Outpatient MILES GROSS D[facility]
[2019-10-23] MEDS ORDERED: ceFAZolin INJECTION 1,000 MG in WATER (STERILE) FOR INJECTION 10 ML IV ONE (09:00)
[2019-10-23] MEDS ORDERED: MIDAZOLAM 2 MG/2 ML (VERSED) VIAL ONE ×2 (09:11→10:35)
[2019-10-23] MEDS ORDERED: ROPIVACAINE 5MG/ML 30ML VIAL ONE (09:11)
--- NOTE | 2019-10-23 09:16 | Progress Note-Pre Operative ---
Pre-Operative Progress Note H&P Reviewed The H&P was reviewed, patient examined and no changes noted. Date Seen by Provider: Oct 23, 2019 Time Seen by Provider: 09:15 Date H&P Reviewed: Oct 23, 2019 Time H&P Reviewed: 09:15 Pre-Operative Diagnosis: Right rotator cuff tear NGUYỄN CERVANTES MD Oct 23, 2019 09:15
--- NOTE | 2019-10-23 09:18 | Progress Note-Post Operative ---
Post-Operative Progess Note Surgeon (s)/Product Steward (s) Surgeon NGUYỄN CERVANTES MD Product Steward: Al Cartagena Pre-Operative Diagnosis Right rotator cuff tear Post-Operative Diagnosis Right rotator cuff tear Procedure & Operative Findings Date of Procedure 10/23/19 Procedure Performed/Findings right shoulder arthroscopic acromioplasty and open rotator cuff repair Anesthesia Type GETA Estimated Blood Loss Estimated blood loss (mL): minimal Specimens/Packing Specimens Removed none Packing: none NGUYỄN CERVANTES MD Oct 23, 2019 09:17
[2019-10-23] MEDS ORDERED: ceFAZolin INJECTION 1,000 MG ONE (09:39)
[2019-10-23] MEDS ORDERED: WATER (STERILE) FOR INJECTION 10 ML ONE (09:39)
[2019-10-23] MEDS: LACTATED RINGERS 1,000 ML IV PRN ×2 (09:41→11:13)
[2019-10-23] MEDS ORDERED: proPOfol 200 MG/20 ML (DIPRIVAN) VIAL IV ONE (10:35)
[2019-10-23] MEDS ORDERED: fentaNYL INJECTION 100 MCG/2 ML AMP ONE (10:35)
[2019-10-23] MEDS ORDERED: LIDOCAINE PF 2% 5 ML (XYLOCAINE) VIAL ONE (10:35)
[2019-10-23] MEDS ORDERED: morphine PF (DURAMORPH) 10 MG/10 ML AMP ONE (10:36)
[2019-10-23] MEDS ORDERED: BUPIVACAINE 0.25% 30 ML (SENSORCAINE) VIAL ONE (10:37)
[2019-10-23] MEDS ORDERED: morphine INJ 10 MG/ML 1ML (SYR OR VIAL) IVP ONE (12:00)
[2019-10-23] MEDS ORDERED: ONDANSETRON 4 MG/2 ML (SDV) Z0FRAN IVP PRN (12:00)
[2019-10-23] MEDS ORDERED: GLYCOPYRROLATE 0.2 MG/ML (ROBINUL) 2 ML VIAL ONE (12:03)
[2019-10-23] MEDS ORDERED: NEOSTIGMINE 3 MG/3 ML VIAL ONE (12:03)
[2019-10-23] MEDS ORDERED: SEVOFLURANE (ULTANE) 15 ML INHAL SOLN ONE (12:04)
[2019-10-23] MEDS ORDERED: ROCURONIUM 10 MG/ML 5 ML SYRINGE IV ONE (12:05)
[2019-10-23] MEDS ORDERED: OXYC-471 PO ×2 (13:33→13:41)
--- NOTE | 2019-10-23 15:11 | OPERATIVE REPORT ---
DATE OF SERVICE: PREOPERATIVE DIAGNOSIS: Right rotator cuff tear. POSTOPERATIVE DIAGNOSIS: Right rotator cuff tear. PROCEDURES: 1. Right open rotator cuff repair. 2. Right shoulder arthroscopic acromioplasty. SURGEON: Lamont Cervantes MD PHARMACOGNOSY TEACHER: SHAI Hernandez, who assisted throughout the procedure and closed the incision. ANESTHESIA: General endotracheal plus interscalene nerve block by Lotus Garcia CRNA. ESTIMATED BLOOD LOSS: Minimal. DRAINS: None. COMPLICATIONS: None. POSTOPERATIVE PLAN: Sling wear and passive range of motion for 4 weeks. The patient was transferred to the recovery room awake and stable condition. STATEMENT OF MEDICAL NECESSITY: The patient is a 49-year-old right-hand dominant female with complaints of right shoulder pain and weakness. An MRI revealed a small full-thickness supraspinatus tear. She tried rest, activity modifications, anti-inflammatories without relief. Due to functional impairment and failure to improve with conservative measures, the patient elected to proceed with surgical intervention. Examination under anesthesia revealed forward elevation of 150 degrees, external rotation of 80 degrees and internal rotation of 70. Manipulation was performed, which led to a symmetric forward elevation, external and internal rotation with minimal effort required. Arthroscopic findings demonstrated 75% thickness tear of the supraspinatus in a 1 x 1 cm area. The biceps anchor was intact. There was no labral pathology noted. The glenoid and humeral head demonstrated no gross chondral abnormalities. DESCRIPTION OF PROCEDURE: After risks and benefits of procedure were discussed and questions were answered, informed consent was signed and placed on chart, the operative site was confirmed in the preoperative holding area initialed by the surgeon. The patient was then transferred to the operating room and after adequate levels of general endotracheal anesthetic were obtained, a timeout was called, confirming the operative site and examination under anesthesia was performed with above findings noted. The right shoulder and upper extremity were prepped and draped in the usual sterile fashion. Shoulder joint was injected with 20 mL fluid as was the subacromial space. A standard posterior portal was placed, and diagnostic arthroscopy was carried out with above findings noted. Scope was redirected into the subacromial space. Lateral portal was created. Bursectomy was performed and the acromion was planed to a flat type 1 acromion. The scope and instruments were then removed. The lateral portal was then extended. The deltoid was split in line with its fibers leaving attached to the acromion. The rotator cuff tear was completed and debrided. A single corkscrew anchor was placed in a modified Tim-Alejandro repair was performed with excellent repair obtained. No undue tension was noted with the arm at the side. The shoulder was copiously irrigated. The deltoid was repaired in a [id number] fashion using #2 FiberWire. The wound was further irrigated, 2-0 Vicryl was used to reapproximate subcutaneous tissue and the skin was closed with 4-0 nylon in a running alternating horizontal mattress fashion. The portal sites were closed with 4-0 nylon in simple interrupted fashion. Shoulder was injected with Duramorph. Portal sites were infiltrated with plain Marcaine. A soft dressing and sling were applied. The patient was transferred to the recovery room, awake and in stable condition. Job ID: [id number] DocumentID: [id number] Dictated Date: 10/23/2019 11:38:05 Proposal Consultant Date: 10/23/2019 15:09:21 Dictated By: LAMONT CERVANTES MD
--- NOTE | 2019-10-24 08:13 | Anesthesia-General Post-Op ---
General Patient Condition Mental Status/LOC: Same as Preop Cardiovascular: Satisfactory Nausea/Vomiting: Absent Respiratory: Satisfactory Pain: Controlled Complications: Absent Post Op Complications Complications None Follow Up Care/Instructions Patient Instructions None needed. Anesthesia/Patient Condition Patient Condition late entry from 10/23/19: Patient was doing well, no complaints, stable vital signs, no apparent adverse anesthesia problems. No complications reported per nursing, thus patient was discharged. [employer] Oct 24, 2019 08:13
== END 2019-10-23 14:15 | disposition home or self-care (01) ==
LOC: SDC 08:28
PROVIDERS: ATTEND Orthopaedic Surgery
DX: M75.101 Unspecified rotator cuff tear or rupture of right shoulder, not specified as traumatic (principal); M75.01 Adhesive capsulitis of right shoulder; K21.9 Gastro-esophageal reflux disease without esophagitis; G40.909 Epilepsy, unspecified, not intractable, without status epilepticus; J45.909 Unspecified asthma, uncomplicated; G47.33 Obstructive sleep apnea (adult) (pediatric); I82.409 Acute embolism and thrombosis of unspecified deep veins of unspecified lower extremity; F32.9 Major depressive disorder, single episode, unspecified; Z98.51 Tubal ligation status; Z90.49 Acquired absence of other specified parts of digestive tract; Z99.89 Dependence on other enabling machines and devices; Z79.899 Other long term (current) drug therapy; Z88.6 Allergy status to analgesic agent
CPT/HCPCS: 84703; 87081

== ENCOUNTER → 2020-04-14 | Outpatient (CLI) | payer MEDICAID ==
[~2020-04-14] MED LIST changes: +OXYC-471 PO; -PANT40TA3 PO; +PANT40TA52 PO; -oxyCODONE/APAP 5/325MG (PERCOCET 5) TABLET PO PRN
--- NOTE | 2020-04-14 10:54 | Diagnostic Imaging Report ---
INDICATION: Screening. The current study was also evaluated with a Computer Aided Detection (CAD) system. 3-D Tomographic imaging was also performed. Comparison made with prior examination from 03/06/2019, 02/20/18 and 11/08/2016 FINDINGS: The fibroglandular tissue is heterogeneously dense bilaterally. There is an essentially unchanged well-circumscribed mass in the upper outer right breast presumably cysts. There are benign type calcifications. There is no other dominant mass, spiculated lesion or suspicious calcifications identified. IMPRESSION: Category 2 benign ACR BI-RADS Category 2: Benign findings. Result letter will be mailed to the patient. Note: At least 10% of breast cancer is not imaged by mammography. Dictated by: Dictated on workstation # [id number]
== END ==
LOC: RAD 09:02
PROVIDERS: ATTEND Family Medicine
DX: Z12.31 Encounter for screening mammogram for malignant neoplasm of breast (principal)
CPT/HCPCS: 77063; 77067

== ENCOUNTER 2020-10-26 07:18 | Emergency (ER) | payer MEDICAID ==
[~2020-10-26] VITALS: Ht 154 cm; Wt 88.0 kg
[~2020-10-26 07:18] MED LIST changes: -OXYC-471 PO; +OXYC1TAB11 PO
[2020-10-26 07:54] VITALS: BP 125/85
--- NOTE | 2020-10-26 08:07 | ED General ---
General Chief Complaint: Foreign Body Stated Complaint: SOMETHING IN HER EAR Source of Information: Patient Exam Limitations: No Limitations History of Present Illness Date Seen by Provider: Oct 26, 2020 Time Seen by Provider: 08:00 Initial Comments Patient is a 50-year-old female who presents to the emergency room for a concern for a foreign body possibly a fly in her left ear. Patient has no complaints of pain. She does not feel like there is something in there at the moment. No other complaints of illness or injury. All other review of systems reviewed and negative except as stated. Timing/Duration: 12-24 Hours Severity: Mild Associated Systoms: Denies Symptoms Allergies and Home Medications Allergies Coded Allergies: aspirin (Verified Allergy, Unknown, 12/02/16) phentermine (Unverified Adverse Reaction, Unknown, 10/23/19) Home Medications Ascorbic Acid 1,000 Mg Tablet, 1,000 MG PO DAILY, (Reported) Cetirizine HCl 10 Mg Tablet, 10 MG PO DAILY, (Reported) Cholecalciferol (Vitamin D3) 50 Mcg Tab.chew, 50 MCG PO DAILY, (Reported) Cyclobenzaprine HCl 5 Mg Tablet, 5 MG PO daily@1530&hs, (Reported) Divalproex Sodium 500 Mg Tab.er.24h, 500 MG PO BID, (Reported) Ferrous Sulfate 142 Mg Tablet.er, 142 MG PO BID, (Reported) Fesoterodine Fumarate 4 Mg Tab.sr.24h, 4 MG PO DAILY, (Reported) Meloxicam 15 Mg Tablet, 15 MG PO DAILY, (Reported) Multivits,Ca,Minerals/Iron/FA 1 Each Tablet, 1 EACH PO DAILY, (Reported) Olanzapine 5 Mg Tablet, 5 MG PO DAILY, (Reported) Oxycodone HCl/Acetaminophen 1 Each Tablet, 1 EACH PO Q4H PRN for PAIN-SEVERE Prescribed by: RODERICK LOBO on 10/23/19 1341 Pantoprazole Sodium 40 Mg Tablet.dr, 40 MG PO DAILY, (Reported) Prazosin HCl 1 Mg Capsule, 1 MG PO DAILY, (Reported) Trazodone HCl 50 Mg Tablet, 50 MG PO HS, (Reported) Ziprasidone HCl 20 Mg Capsule, 20 MG PO DAILY, (Reported) Patient Home Medication List Home Medication List Reviewed: Yes Review of Systems Review of Systems Constitutional: see HPI EENTM: no symptoms reported; No ear discharge, No hearing loss, No ear pain Respiratory: no symptoms reported Cardiovascular: no symptoms reported Gastrointestinal: no symptoms reported Genitourinary: no symptoms reported Skin: no symptoms reported All Other Systems Reviewed Negative Unless Noted: Yes Past Zmfynmv-Gubdmx-Qrgdga Hx Patient Social History Recent Hopitalizations: No Seasonal Allergies Seasonal Allergies: Yes Past Medical History Surgeries: Yes (HERNIA SX, ) Gallbladder Respiratory: Yes Asthma, Sleep Apnea Currently Using CPAP: Yes (WEARS CPAP AT HOME) Currently Using BIPAP: No Cardiac: Yes Deep Vein Thrombosis Neurological: Yes Seizure Disorder Genitourinary: No Gastrointestinal: Yes Gastroesophageal Reflux, Hiatal Hernia Musculoskeletal: Yes Endocrine: No HEENT: No Cancer: No Psychosocial: Yes (intellectually delayed) Depression Integumentary: No Blood Disorders: No Physical Exam Vital Signs Capillary Refill : Height, Weight, BMI Height: 5'1.00" Weight: 197lbs. oz. 89.713133gm; 38.25 BMI Method:Stated General Appearance: No Apparent Distress, WD/WN Eyes: Bilateral Eye Normal Inspection, Bilateral Eye PERRL, Bilateral Eye EOMI HEENT: TMs Normal Respiratory: No Accessory Muscle Use, No Respiratory Distress Neurologic/Psychiatric: Alert, Oriented x3, No Motor/Sensory Deficits, Normal Mood/Affect Skin: Normal Color, Warm/Dry Progress/Results/Core Measures Suspected Sepsis SIRS Temperature: Pulse: Respiratory Rate: Blood Pressure / Mean: Results/Orders Vital Signs/I&O Capillary Refill : Departure Impression Primary Impression: Encounter for well adult exam without abnormal findings Disposition: 01 HOME, SELF-CARE Condition: Stable Departure-Patient Inst. Decision time for Depature: 08:07 Referrals: YASIR MARTIN MD (PCP/Family) Primary Care Physician Add. Discharge Instructions: Continue routine prescribed home medications. Return to the emergency room for any new, concerning or emergent symptoms CORAL MARES MD Oct 26, 2020 08:07
== END 2020-10-26 08:10 | disposition home or self-care (01) ==
LOC: EDUNIT# 07:18 → ER 07:21
DX: Z00.00 Encounter for general adult medical examination without abnormal findings (principal); J45.909 Unspecified asthma, uncomplicated; F32.9 Major depressive disorder, single episode, unspecified; K21.9 Gastro-esophageal reflux disease without esophagitis; Z88.8 Allergy status to other drugs, medicaments and biological substances; Z79.899 Other long term (current) drug therapy
CPT/HCPCS: 99282

== ENCOUNTER → 2021-04-19 | Outpatient (CLI) | payer MEDICAID ==
[~2021-04-19] MED LIST changes: +FERR142T17 PO; -FERR142T7 PO; -OLAN5TAB25 PO; +OLN5T PO; -PHEN30CA2; +PHEN30CA21
--- NOTE | 2021-04-19 18:49 | Diagnostic Imaging Report ---
Digital mammogram bilateral screening. This study was compared to the prior exams of 04/14/2020, 03/06/2019 and 02/20/2018. At this time, there are no current complaints. The fibroglandular tissue in both breasts is heterogeneously dense. This does limit the sensitivity of this exam. As on the previous study, there are numerous microcalcifications scattered throughout both breasts. These microcalcifications seem stable. There is no primary or secondary sign of malignancy noted. IMPRESSION: 1. There is no evidence for malignancy. ACR category 1 ACR BI-RADS Category 1: Negative. Result letter will be mailed to the patient. Note: At least 10% of breast cancer is not imaged by mammography. Dictated by: Dictated on workstation # [id number]
== END ==
LOC: RAD 08:45
PROVIDERS: ATTEND Nurse Practitioner Family
DX: Z12.31 Encounter for screening mammogram for malignant neoplasm of breast (principal)
CPT/HCPCS: 77063; 77067

== ENCOUNTER → 2022-04-20 | Outpatient (CLI) | payer MEDICAID ==
--- NOTE | 2022-04-20 18:45 | Diagnostic Imaging Report ---
TECHNIQUE: 3-D bilateral screening mammogram The current study was also evaluated with a Computer Aided Detection (CAD) system. COMPARISON: This study was compared to the prior exams of 04/19/2021, 04/14/2020 and 03/06/2019. There are no current complaints. FINDINGS: The fibroglandular tissue in both breasts is heterogeneously dense. This does limit the sensitivity of this exam. Overall, there does not appear to have been any significant change when compared to the prior study. No primary or secondary sign of malignancy is noted. IMPRESSION: There is no radiographic evidence for malignancy. ACR BI-RADS Category 1: Negative. Result letter will be mailed to the patient. Note: At least 10% of breast cancer is not imaged by mammography. Dictated by: Dictated on workstation # [id number]
== END ==
LOC: RAD 09:33
PROVIDERS: ATTEND Family Medicine
DX: Z12.31 Encounter for screening mammogram for malignant neoplasm of breast (principal)
CPT/HCPCS: 77063; 77067

== ENCOUNTER → 2023-04-06 | Outpatient (CLI) | payer MEDICAID ==
--- NOTE | 2023-04-06 16:09 | Diagnostic Imaging Report ---
INDICATION: Palpable lump left breast. Correlation is made with prior mammogram from 04/20/2022 and 04/19/2021. 2-D and 3-D bilateral diagnostic mammography was performed with CAD. Marker was placed at the area palpable abnormality medial left breast. Both breasts are heterogeneously dense, limiting the sensitivity of mammography. Overall parenchymal pattern appears stable. No mass or malignant-appearing microcalcifications are identified. Axillae are unremarkable. IMPRESSION: No mammographic features suspicious for malignancy are identified. Even so, directed sonographic interrogation of the area of palpable abnormality left breast is recommended and will be performed today. ACR BI-RADS Category 0: Incomplete. (Needs additional imaging evaluation). Result letter will be mailed to the patient. Note: At least 10% of breast cancer is not imaged by mammography. BI-RADS Category 0 Dictated by: Dictated on workstation # [id number]
--- NOTE | 2023-04-06 18:35 | Diagnostic Imaging Report ---
INDICATION: Palpable lump in left breast. COMPARISON: Correlation is made with the diagnostic mammogram performed earlier the same day. FINDINGS: Sonographic interrogation of the upper left breast in area of pain and palpable abnormality was performed. There are numerous hypoechoic nodules at the 10-12 o'clock location of the left breast ranging in size from approximately 4 to 8 mm. No definite internal vascularity is seen. It is uncertain if these represent benign solid nodules versus a complex cyst. There are multiple calcifications seen within the left breast soft tissues corresponding with mammographic findings. There is a cyst at the retroareolar location measuring approximate 12 mm in size. IMPRESSION: There are numerous circumscribed nodules in the left breast at the 10-12 o'clock location as well as retroareolar consistent with simple as well as complex cysts versus benign solid nodules. Even so, follow-up left mammogram and left breast ultrasound in six months is recommended to show continued stability. ACR BI-RADS Category 3: Probably benign findings. Result letter will be mailed to the patient. Note: At least 10% of breast cancer is not imaged by mammography. Dictated by: Dictated on workstation # [id number]
== END ==
LOC: RAD 14:05
PROVIDERS: ATTEND Family Medicine
DX: N63.20 Unspecified lump in the left breast, unspecified quadrant (principal)
CPT/HCPCS: 76642; 77066; G0279; 77062